=== PATIENT | female | born 1975 | race Caucasian/White ===

== ENCOUNTER → 2016-05-27 | Outpatient (CLI) | payer BC ==
[~2016-05-27] MED LIST: MULT-506 PO
[2016-05-27 14:24] LABS: BASO % 0.2 %; BASO ABS # 0.02 K/uL (0-0.2); COMPLETE YES; EOS % 2.1 %; HEMATOCRIT 41.9 % (37-47); IG% 0.1 %; LYMPH % 27.1 %; LYMPH ABS # 2.46 K/uL (1.2-3.4); MEAN CELL VOLUME 96.5 fL (80-100); MEAN CORPUSCULAR HEMOGLOBIN 33.4 pg (25-34); MEAN CORPUSCULAR HGB CONC 34.6 g/dl (32-36); MEAN PLATELET VOLUME 10.9 fL (7.4-10.4); MONO % 7.7 %; NEUT % 62.8 %; PLATELET COUNT 169 K/uL (130-400); RED BLOOD COUNT 4.34 M/uL (4.2-5.4); WHITE BLOOD COUNT 9.09 K/uL (4.8-10.8)
== END | disposition home or self-care (01) ==
LOC: C.LAB1850 13:20
PROVIDERS: ATTEND Obstetrics & Gynecology
DX: R10.2 Pelvic and perineal pain (principal)

== ENCOUNTER → 2016-06-03 | Outpatient (CLI) | payer BC ==
[2016-06-03 10:02] LABS: ALT/SGPT 28 U/L (12-78); AST/SGOT 11 U/L (15-37); BLOOD UREA NITROGEN 10 mg/dl (7-18); BUN/CREATININE RATIO 10.4 (10-20); CALCIUM 8.5 mg/dl (8.5-10.1); CARBON DIOXIDE 25 mmol/L (21-32); CHLORIDE 107 mmol/L (98-107); CREATININE 0.99 mg/dl (0.60-1.20); GLUCOSE 84 mg/dl (70-99); POTASSIUM 3.9 mmol/L (3.5-5.1); SODIUM 140 mmol/L (136-145)
[2016-06-03 10:15] LABS: ALB/GLOB RATIO 1.2 (0.9-2); ALKALINE PHOSPHATASE 56 U/L (45-117); CHOLESTEROL 147 mg/dl (0-200); CHOLESTEROL/HDL RATIO 3.8; HDL CHOLESTEROL 39 mg/dl; TRIGLYCERIDES 117 mg/dl (0-150); VERY LOW DENSITY LIPOPROT CALC 23 mg/dl
== END ==
LOC: C.LAB1850 07:12
PROVIDERS: ATTEND Internal Medicine
DX: R53.83 Other fatigue (principal); E78.5 Hyperlipidemia, unspecified; E66.09 Other obesity due to excess calories

== ENCOUNTER → 2016-09-20 | Outpatient (CLI) | payer BC ==
[~2016-09-20] MED LIST changes: +FRRG PO; +PRT40 PO
--- NOTE | 2016-09-21 14:52 | MAMMOGRAPHY REPORT ---
BILATERAL FIRST EVER DIGITAL SCREENING MAMMOGRAM TOMOSYNTHESIS WITH CAD: 09/20/2016 CLINICAL HISTORY: Baseline examination. Patient has no complaints. TECHNIQUE: Breast tomosynthesis in addition to standard 2D mammography was performed. Current study was also evaluated with a Computer Aided Detection (CAD) system. COMPARISON: No prior exams were available for comparison. BREAST COMPOSITION: The tissue of both breasts is heterogeneously dense, which may obscure small ma sses. FINDINGS: No suspicious mass, architectural distortion or cluster of microcalcifications is seen. IMPRESSION: ACR BI-RADS CATEGORY 1: NEGATIVE There is no mammographic evidence of malignancy. A 1 year screening mammogram is recommended. The p atient will receive written notification of the results. Approximately 10% of breast cancers are not detected with mammography. A negative mammographic repor t should not delay biopsy if a clinically suggestive mass is present. Charmaine Morris M.D. ay/:09/20/2016 18:01:59 [employer] Drawing Operator: Christin Goss, [facility] letter sent: Normal 1/2 BI-RADS Code: ACR BI-RADS Category 1: Negative
== END | disposition home or self-care (01) ==
LOC: C.MAMM 14:32
PROVIDERS: ATTEND Internal Medicine
DX: Z12.31 Encounter for screening mammogram for malignant neoplasm of breast (principal)

== ENCOUNTER 2017-03-08 12:25 | Inpatient (IN) | payer BC ==
[~2017-03-08] VITALS: Ht 152.4 cm; Wt 71.7 kg
[~2017-03-08 12:25] MED LIST changes: -FRRG PO; -PRT40 PO
[2017-03-08] MEDS ORDERED: SODIUM CHLORIDE 0.9% 1000ML 1,000 ML IV SCH (13:00)
[2017-03-08] MEDS ORDERED: PANTOprazole INJ 80 MG in DEXTROSE 5% 100ML IV SCH (13:00)
[2017-03-08 13:13] VITALS: BP 152/90; PULSE 126; TEMP 36.7; O2SAT 100; Ht 152.4 cm; Wt 71.7 kg
[2017-03-08 13:45] LABS: BASO % 0.2 %; BASO ABS # 0.02 K/uL (0-0.2); EOS % 1.7 %; HEMATOCRIT 29.7 % (37-47); IG% 0.2 %; LYMPH ABS # 3.27 K/uL (1.2-3.4); MEAN CELL VOLUME 96.4 fL (80-100); MEAN CORPUSCULAR HEMOGLOBIN 33.4 pg (25-34); MEAN PLATELET VOLUME 10.3 fL (7.4-10.4); MONO % 5.7 %; NEUT % 65.2 %; PLATELET COUNT 154 K/uL (130-400); RED BLOOD COUNT 3.08 M/uL (4.2-5.4)
--- NOTE | 2017-03-08 13:49 | GASTROINTESTINAL CONSULTATION ---
DATE OF CONSULTATION: 03/08/2017 REASON FOR CONSULTATION: Melena. HISTORY OF PRESENT ILLNESS: The patient is a 41-year-old person, previously in excellent health, who developed some epigastric discomfort intermittently last week and then 2 days ago, had melenic stool. She had another one yesterday and then today, her third one, at which point she presented to the office of Dr. Burrell. She was found to have blood in her stool and was tachycardic and was referred for direct admission. The patient reports never having had symptoms similar to this. She does take Excedrin Migraine 2 pills about every 2 weeks for occasional headaches, but otherwise takes no aspirin or other nonsteroidals. She is on no other medications and there is no family history of ulcer disease. PAST MEDICAL HISTORY: Remarkable for uterine ablation and 2 D&Cs. MEDICATIONS: Excedrin Migraine p.r.n. ALLERGIES: SULFA CAUSES HER LIPS AND TONGUE TO SWELL. 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 She does not smoke. Drinks alcohol about twice a week, usually about 2 drinks. FAMILY HISTORY: Unknown as the patient is adopted. REVIEW OF SYSTEMS: The patient noted that she was a little bit short of breath when going up the stairs, which is unusual for her. The remainder is negative. PHYSICAL EXAMINATION: GENERAL: The patient appears awake, alert, in no acute distress. VITAL SIGNS: Blood pressure is 152/90, pulse 126, and temperature is 36.7. Room air oxygen saturation is 100%. HEENT: Pupils react to light. Conjunctivae are slightly pale. Pharynx clear. NECK: Showed no thyromegaly. ABDOMEN: Shows a naval piercing scar. There are no masses, tenderness, or hepatosplenomegaly. EXTREMITIES: Showed her palms of her hands are slightly pale as well. NEUROLOGIC: Nonfocal. IMPRESSION: The patient has melena, probably from an ulcer. Her only identifiable risk factor so far, which is a low risk factor, is that she takes Excedrin Migraine 2 pills about every 2 weeks. I plan on checking a stool for H. pylori. She has been ordered Protonix drip. She did have something to eat a couple of hours ago and we were not going to be able to sedate her today, but we will schedule her for an EGD tomorrow. In the meantime, she can be on liquids. We will continue to follow her during her hospital stay.
[2017-03-08] MEDS: PANTOprazole INJ 40 MG in DEXTROSE 5% 100ML IV SCH ×2 (13:53→19:00)
[2017-03-08 13:55] LABS: COMPLETE YES; MEAN CORPUSCULAR HGB CONC 34.7 g/dl (32-36)
[2017-03-08 14:07] LABS: ALB/GLOB RATIO 1.2 (0.9-2); BUN/CREATININE RATIO 15.1 (10-20); CALCIUM 8.6 mg/dl (8.5-10.1); CREATININE 0.76 mg/dl (0.60-1.20)
[2017-03-08] MEDS: POTASSIUM CHLORIDE INJ 40 MEQ in SODIUM CHLORIDE 0.9% 1000ML 1,000 ML IV SCH (14:45)
[2017-03-08 15:18] VITALS: BP 129/82; PULSE 87; TEMP 36.9; O2SAT 100
[2017-03-08 16:00] VITALS: O2SAT 100
--- NOTE | 2017-03-08 18:04 | History and Physical ---
History & Physical Date of Service Mar 08, 2017. History & Physical ADMISSION DATE : 03/08/2017 CHIEF COMPLAINT : 41-year-old female admitted directly from the office with epigastric pain and evidence of gastrointestinal bleed. PRESENT ILLNESS : Patient without any significant past medical history. She has no history of any peptic ulcer disease. She does not take any gastrotoxic medications. She called earlier this morning complaining of having epigastric pain and also black stool. Her symptoms started last week. She was feeling bloated. Some review nonspecific abdominal discomfort. She was constipated. She thought that that was the problem. The episodes came in waves as she described them. Subsequently the pain centralized in the epigastric area. Since Monday she was having severe pain. Last night she could not sleep because of the severity of the pain. She denied any associated fever or chills. No nausea no vomiting. She has had multiple bowel movements and ordered were black stools since Monday morning. She had a total of what 4-5 bowel movements. She denied any associated dizziness or lightheadedness. She was complaining of feeling very tired. She last had chicken soup but on 11:00 in the morning. On examination in the office she had epigastric tenderness without any guarding or rebound. Rectal examination showed dark black stool. Tested very positive for blood. Arrangements were made for admission for further evaluation and treatment. PAST MEDICAL HISTORY : * 2 D&Cs in the past * Uterine ablation done in April 2016 * Lucien teeth extraction in the remote past * Occasional headache for which she takes Excedrin Migraine. SOCIAL HISTORY : She is . Has 2 children. Denied any smoking. Very occasional alcohol. No excessive coffee Q soft drinks. Just one cup of coffee per day. She is a teacher. FAMILY HISTORY : She is adopted. Not aware of any family history ALLERGIES : Sulfa which caused swelling of her throat CURRENT MEDICATIONS : Excedrin Migraine on a when necessary basis REVIEW OF SYSTEMS : She denied any headache. No dizziness no lightheadedness. No problem with her vision. No earaches or throat or neck pain. No chest pain pressure or tightness. No shortness of breath. Complaining of epigastric pain. No nausea no vomiting. Black stool as noted. No urinary problem. No pain in her back or extremities. PHYSICAL EXAMINATION : General she is well-developed. No distress. Her recorded weight is 71.7 kg height 152.4 cm. BMI 30.9 Vital signs: When she was seen in the office her blood pressure was 126/74 pulse 72 and regular temperature 98.7 Skin is warm and dry. No rash HEENT: No mucosal abnormalities Neck is supple without lymph node or thyroid enlargement. No JVD. Normal carotid pulses. No bruit Heart regular heart sounds without any murmur rub or gallop Lungs are clear. Abdomen is soft. Definite epigastric tenderness. No guarding or rebound. No organomegaly or masses. Good bowel sounds. Back no spinal or CVA tenderness Extremities no edema clubbing or cyanosis. No joint or muscle tenderness. Good pulses Neurological examination was completely unremarkable Rectal examination showed no anorectal abnormality. She has very dark black stool which tested very positive for occult blood. LABORATORY TESTS : WBC count 12,100, hemoglobin 10.3, hematocrit 29.7, platelet count 154,000. Sodium 140, potassium 3.0, chloride 107, CO2 24, BUNs 12, creatinine 0.76, glucose 143, calcium 8.6, total bilirubin 0.2, AST 12, AST 21, alkaline phosphatase 56, total protein 6.7, albumin 3.7, amylase 63, lipase 193. ASSESSMENT : * Acute GI bleed. I'm suspecting that she most likely has peptic ulcer disease given the fact that she is having epigastric pain and she has had melena for the last 3 days. * History of headaches. * Hypokalemia PLAN : Patient was admitted to a medical bed. Resuscitation level I. All other laboratory tests were ordered. She was started on IV fluid. Potassium chloride was added to her IV fluid. She was also started on IV Protonix with a bolus and continuous infusion. I spoke with Dr. Chopra and requested a GI consultation. We'll recheck her CBC at 8:00 tonight. Also will check a PT and a PTT. Dr. Chopra ordered H pylori. The plan at this time is to proceed with an EGD tomorrow. Further treatment will depend on findings. Overall at this point her condition is quite stable. She is not manifesting any orthostatic symptomatology.
[2017-03-08 20:27] LABS: MEAN CELL VOLUME 96.7 fL (80-100); MEAN CORPUSCULAR HEMOGLOBIN 32.3 pg (25-34); MEAN CORPUSCULAR HGB CONC 33.4 g/dl (32-36); PLATELET COUNT 143 K/uL (130-400); WHITE BLOOD COUNT 11.71 K/uL (4.8-10.8)
[2017-03-08 20:38] LABS: PARTIAL THROMBOPLASTIN RATIO 0.9; PROTHROMBIN TIME (PATIENT) 10.2 SECONDS (9.0-12.0)
[2017-03-08] MEDS: ACETAMINOPHEN 325 MG TAB PO PRN (21:12)
[2017-03-08 23:39] VITALS: BP 103/67; PULSE 84; TEMP 36.8; O2SAT 99
[2017-03-09] VITALS (7 sets, daily range): BP systolic 107–131; BP diastolic 69–85; PULSE 66–94; TEMP 36.8–37; O2SAT 97–100
[2017-03-09] MEDS: PANTOprazole INJ 40 MG in DEXTROSE 5% 100ML IV SCH ×6 (00:11→23:37)
[2017-03-09] MEDS: POTASSIUM CHLORIDE INJ 40 MEQ in SODIUM CHLORIDE 0.9% 1000ML 1,000 ML IV SCH ×3 (01:00→19:52)
[2017-03-09 06:13] LABS: BASO % 0.1 %; BASO ABS # 0.01 K/uL (0-0.2); COMPLETE YES; EOS % 4.1 %; HEMATOCRIT 27.1 % (37-47); IG% 0.3 %; LYMPH % 36.4 %; LYMPH ABS # 2.76 K/uL (1.2-3.4); MEAN CELL VOLUME 97.8 fL (80-100); MEAN CORPUSCULAR HEMOGLOBIN 33.9 pg (25-34); MEAN CORPUSCULAR HGB CONC 34.7 g/dl (32-36); MEAN PLATELET VOLUME 9.8 fL (7.4-10.4); MONO % 5.7 %; NEUT % 53.4 %; PLATELET COUNT 132 K/uL (130-400); RED BLOOD COUNT 2.77 M/uL (4.2-5.4); WHITE BLOOD COUNT 7.59 K/uL (4.8-10.8)
[2017-03-09 06:58] LABS: BUN/CREATININE RATIO 7.9 (10-20); CALCIUM 7.6 mg/dl (8.5-10.1); CREATININE 0.78 mg/dl (0.60-1.20); POTASSIUM 3.8 mmol/L (3.5-5.1)
[2017-03-09] MEDS: ACETAMINOPHEN 325 MG TAB PO PRN ×3 (09:29→20:00)
[2017-03-09] MEDS ORDERED: FENTANYL CITRATE INJ 50 MCG/1 ML 2 ML VIAL ONE (12:14)
[2017-03-09] MEDS ORDERED: PROPOFOL IV EMULSION 10 MG/ML 20 ML VIAL IV ONE (12:14)
[2017-03-09] MEDS ORDERED: METOPROLOL TARTRATE 1 MG/ML VIAL ONE (12:14)
--- NOTE | 2017-03-09 12:27 | Endo History and Physical ---
History & Physical Date of Service: Mar 09, 2017. Chief Complaint: Melena Referring Physician: [facility] History of Present Illness For EGD Past Surgical History Hx Cardiac Surgery: No Hx Abdominal Surgery: No Hx Post-Op Nausea and Vomiting: No Hx Cancer Surgery: No Hx Thoracic Surgery: No Hx Orthopedic: No Hx Urinary Tract Surgery: No Social History Smoking Status: Never Smoker Hx Substance Use: No Hx Alcohol Use: Yes (Captain once a week) Allergies Coded Allergies: Sulfa Antibiotics (Verified Allergy, Unknown, HIVES, THROAT SWELLING, ) Current Medications Reported Home Medications Medications Dose Route/Sig Max Daily Dose Days Date Category Multivitamin (Multivitamins) Tab 1 Tab PO QAM 04/19/16 Reported Vital Signs Weight (Kilograms): 71.700 Height (Feet): 5 Height (Inches): 0.00 Date Time Temp Pulse Resp B/P (MAP) Pulse Ox O2 Delivery O2 Flow Rate FiO2 03/09/17 12:10 37.2 93 16 135/72 (93) 100 Room Air 03/09/17 12:09 36.8 66 22 118/77 (91) 100 Room Air 03/09/17 08:30 Room Air 03/09/17 07:29 36.9 81 20 124/85 (98) 99 Room Air 03/09/17 04:25 Room Air 03/09/17 00:00 Room Air 03/08/17 23:39 36.8 84 20 103/67 (79) 99 Room Air 03/08/17 20:00 Room Air 03/08/17 16:00 100 Room Air 03/08/17 15:18 36.9 87 20 129/82 (98) 100 Room Air 03/08/17 13:13 36.7 126 18 152/90 100 Room Air Physical Exam General Appearance: WD/WN Respiratory/Chest: Respiratory effort: no dyspnea Cardiovascular: Heart Auscultation: RRR Abdomen: Inspection & Palpation: soft Assessment and Plan Melena for EGD
[2017-03-09] MEDS ORDERED: LIDOCAINE HCL 2% 2 ML VIAL (20MG/ML) ONE (12:50)
--- NOTE | 2017-03-09 12:50 | GI REPORT ---
Procedure Date: 03/09/2017 12:33 PM Procedure: Upper GI endoscopy Indications: Melena Medicines: Fentanyl 100 micrograms IV, Propofol total dose 150 mg IV, Lidocaine 60 mg IV Complications: No immediate complications. Estimated Blood Loss: Estimated blood loss: none. Procedure: Pre-Anesthesia Assessment: - Prior to the procedure, a History and Physical was performed, and patient medications, allergies and sensitivities were reviewed. The patient's tolerance of previous anesthesia was reviewed. - The risks and benefits of the procedure and the sedation options and risks were discussed with the patient. All questions were answered and informed consent was obtained. After obtaining informed consent, the endoscope was passed under direct vision. Throughout the procedure, the patient's blood pressure, pulse, and oxygen saturations were monitored continuously. The scope was introduced through the mouth, and advanced to the second part of duodenum. The upper GI endoscopy was accomplished without difficulty. The patient tolerated the procedure well. Findings: The examined esophagus was normal. The Z-line was regular and was found 39 cm from the incisors. The entire examined stomach was normal. Three non-bleeding cratered duodenal ulcers with no stigmata of bleeding were found in the first part of the duodenum. The largest lesion was 10 mm in largest dimension. Impression: - Normal esophagus. - Z-line regular, 39 cm from the incisors. - Normal stomach. - Multiple non-bleeding duodenal ulcers with no stigmata of bleeding. - No specimens collected. Recommendation: - Return patient to hospital [facility] for ongoing care. Abdiel Chopra M.D. Abdiel Chopra MD 03/09/2017 12:50:21 PM This report has been signed electronically. Note Initiated On: 03/09/2017 12:33 PM I attest to the content of the Intraoperative Record and orders documented therein, exceptions below
--- NOTE | 2017-03-09 13:07 | Anesthesiology Progress Note ---
Anesthesia Post Op Note Date & Time Mar 09, 2017 at 13:07 Vital Signs Pain Intensity: 0.0 Vital Signs Past 12 Hours Date Time Temp Pulse Resp B/P (MAP) Pulse Ox O2 Delivery O2 Flow Rate FiO2 03/09/17 12:50 87 18 107/56 (73) 100 Room Air 03/09/17 12:10 37.2 93 16 135/72 (93) 100 Room Air 03/09/17 12:09 36.8 66 22 118/77 (91) 100 Room Air 03/09/17 08:30 Room Air 03/09/17 07:29 36.9 81 20 124/85 (98) 99 Room Air 03/09/17 04:25 Room Air Notes Mental Status: alert / awake / arousable, participated in evaluation Pt Amnestic to Procedure: Yes Nausea / Vomiting: adequately controlled Pain: adequately controlled Airway Patency, RR, SpO2: stable & adequate BP & HR: stable & adequate Hydration State: stable & adequate Anesthetic Complications: no major complications apparent
--- NOTE | 2017-03-09 15:49 | PROGRESS NOTE ---
DATE: 03/09/2017 DATE: 03/09/2017 SUBJECTIVE: The patient underwent EGD today which showed a 10 mm ulcer in the duodenal bulb with 2 smaller surrounding ulcers. There was a clean base with no visible vessel or stigmata of bleeding, no clot or blood was seen. The patient tolerated the procedure well. IMPRESSION: The patient has duodenal ulcers, probably related to the headache medication she has been taking intermittently. I did order a stool for H. pylori which is pending. Stool has not been produced since admission. At this point, she can have her Protonix changed to p.o. She is on a full liquid bland diet now and if she tolerates that, we can advance it to a regular bland diet hopefully tomorrow.
[2017-03-09] MEDS ORDERED: TRAMADOL HCL 50 MG TAB PO STA (17:12)
[2017-03-09] MEDS ORDERED: TRAMADOL HCL 50 MG TAB PO PRN (17:15)
--- NOTE | 2017-03-09 17:25 | Progress Note ---
Progress Note Date of Service Mar 09, 2017. Progress Note 41-year-old female admitted with severe epigastric pain and evidence of GI bleed. She had melena for 3 days prior to her admission. Patient was admitted. All her laboratory tests were ordered. She was anemic. On admission her hemoglobin was 10.4. Early this year when she had a CBC done her hemoglobin was over 14. She was admitted. She was started on IV fluid. IV Protonix. She was seen in gastroenterology consultation by Dr. Abdiel Chopra. He was able to do an EGD today. She had 3 duodenal ulcers. There was no evidence of any active bleeding at the time the test was done. She is complaining of headache. She was given Tylenol. That did not relieve her. She does have history of migraines and headaches at home. She has taken Excedrin migraine. I asked her to check exactly what she was taking at home which form of Excedrin whether the one that has only acetaminophen or the one that has aspirin. Denied any dizziness or lightheadedness. No chest pain or shortness of breath. Her abdominal pain has subsided. She is tolerating her diet without any problem. She has not had a bowel movement yet. EXAMINATION : GENERAL: Well-developed. No distress. VITAL SIGNS: Blood pressure 112/77, pulse 88, respiration 18, temperature 37, oxygen saturation 100% on room air. SKIN: Warm and dry. No rash. HEENT: Completely unremarkable. NECK: No tenderness. No adenopathy. HEART: Regular heart sounds no murmur rub or gallop. LUNGS: Clear. ABDOMEN: Soft nontender. BACK: No spinal tenderness. EXTREMITIES: No edema clubbing or cyanosis. LABORATORY TESTS : WBC count 7590, hemoglobin 9.4, hematocrit 27.1, platelet count 132,000. Sodium 141, potassium 3.8, chloride 111, CO2 26, BUNs 6, creatinine 0.78, glucose 86, calcium 7.6. ASSESSMENT : * Acute GI bleed * Anemia secondary to bleeding * 3 duodenal ulcers * Recurrent headaches PLAN : * Her diet was advanced and she has been tolerating it * We'll recheck her lab tests in the morning * Continue IVs tonight * Switched to oral Protonix tomorrow morning * If her hemoglobin is stable and she is completely asymptomatic and tolerating her diet should be able to discharge her tomorrow morning.
[2017-03-10] MEDS: PANTOprazole INJ 40 MG in DEXTROSE 5% 100ML IV SCH (04:52)
[2017-03-10] MEDS: POTASSIUM CHLORIDE INJ 40 MEQ in SODIUM CHLORIDE 0.9% 1000ML 1,000 ML IV SCH (06:27)
[2017-03-10 06:29] LABS: BASO % 0.2 %; BASO ABS # 0.01 K/uL (0-0.2); COMPLETE YES; EOS % 4.9 %; HEMATOCRIT 27.9 % (37-47); IG% 0.3 %; LYMPH % 28.9 %; LYMPH ABS # 1.84 K/uL (1.2-3.4); MEAN CELL VOLUME 98.2 fL (80-100); MEAN CORPUSCULAR HEMOGLOBIN 32.4 pg (25-34); MEAN PLATELET VOLUME 9.7 fL (7.4-10.4); NEUT % 60.7 %; PLATELET COUNT 136 K/uL (130-400); RED BLOOD COUNT 2.84 M/uL (4.2-5.4); WHITE BLOOD COUNT 6.37 K/uL (4.8-10.8)
[2017-03-10 07:01] LABS: BUN/CREATININE RATIO 10.9 (10-20); CREATININE 0.76 mg/dl (0.60-1.20); MAGNESIUM 1.9 mg/dl (1.8-2.4); POTASSIUM 4.1 mmol/L (3.5-5.1)
[2017-03-10 07:24] VITALS: BP 114/75; PULSE 77; TEMP 37; O2SAT 94
[2017-03-10] MEDS ORDERED: PRT40 PO (07:56)
[2017-03-10] MEDS ORDERED: FRRG PO (07:56)
--- NOTE | 2017-03-10 07:58 | Discharge Instructions ---
Discharge Instructions Date of Service Mar 10, 2017. Admission Reason for Admission: Gi Bleed Discharge Discharge Diagnosis / Problem: acute upper GI bleed. Multiple watery ulcers. Anemia. Discharge Goals Goal(s): Decrease discomfort, Increase independence, Improve disease control Activity Recommendations Activity Limitations: resume your previous activity . Instructions / Follow-Up Instructions / Follow-Up Follow-up in 1 week. Please call the office for an appointment do not take any aspirin, Advil, ibuprofen, Aleve Current Hospital Diet Patient's current hospital diet: Regular Diet Discharge Diet Recommended Diet: Regular Diet Procedures Procedures Performed: EGD Pending Studies Studies pending at discharge: no Medical Emergencies . Who to Call and When: Medical Emergencies: If at any time you feel your situation is an emergency, please call 911 immediately. . Non-Emergent Contact Non-Emergency issues call your: Primary Care Provider . . "Provider Documentation" section prepared by Ignacio Burrell. . VTE Core Measure Inpt VTE Proph given/why not?: Treatment not indicated
[2017-03-10 08:00] VITALS: O2SAT 94
[2017-03-10 08:34] VITALS: BP 114/75; PULSE 77; TEMP 37; O2SAT 94
[2017-03-10] MEDS ORDERED: PANTOprazole SOD 40 MG TAB PO SCH (09:00)
--- NOTE | 2017-03-10 20:01 | Progress Note ---
Progress Note Date of Service Mar 10, 2017. Progress Note 41-year-old female admitted with upper abdominal pain associated with anemia and evidence of GI bleed with a 3 day history of melena prior to her admission. Patient was admitted. She was started on IV protonix. IV fluid. GI consultation was requested. She had an EGD done. She had evidence of a duodenal ulcers. There was no active bleeding at the time of her endoscopy. Her abdominal pain subsided. Her vitals remained stable. She was not orthostatic. Her diet was advanced and she was tolerating it. EXAMINATION: GENERAL : Well developed. Well nourished. No acute distress. VITAL SIGNS : Blood Pressure : 114/75, pulse 77, respiration 18, temperature 37 , oxygen saturation 94% on room air. SKIN : Warm and dry. No rash. HEENT :Completely unremarkable NECK : Supple. No adenopathy. No thyromegaly. HEART: Regular heart sounds without any murmur rub or gallop. LUNGS: Clear. Normal breath sounds. ABDOMEN: Soft nontender. No organomegaly or masses. Good bowel sounds. BACK: No spine or CVA tenderness. EXTREMITIES : No edema clubbing or cyanosis. LABORATORY TESTS: WBC count 6370, hemoglobin 9.2, hematocrit 27.9, platelet count 136,000. Sodium 139, potassium 4.1, chloride 110, CO2 23, BUN 8, creatinine 2.76, glucose 97, calcium 8.0, magnesium 1.9. ASSESSMENT: * acute upper GI bleed * Multiple duodenal ulcers * Anemia secondary to bleeding * Migraine headaches PLAN: * her condition is stable. She is now asymptomatic. Tolerating her diet. * Discharge home on oral protonix, ferrous gluconate 324 mg 3 times a day. * dietary precautions discussed * Followup in the office in one week I will repeat her CBC then
== END 2017-03-10 09:22 | disposition home or self-care (01) | DRG 379 ==
LOC: C.MED 12:45
PROVIDERS: ADMIT Internal Medicine; ATTEND Internal Medicine
PROC: 0DJ08ZZ Inspection of Upper Intestinal Tract, Via Natural or Artificial Opening Endoscopic (ICD-10-PCS; principal; 2017-03-09 11:57)
DX: K92.2 Gastrointestinal hemorrhage, unspecified (principal); K26.9 Duodenal ulcer, unspecified as acute or chronic, without hemorrhage or perforation; D64.9 Anemia, unspecified

== ENCOUNTER → 2017-03-20 | Outpatient (CLI) | payer BC ==
[~2017-03-20] MED LIST changes: +FRRG PO; +PRT40 PO
[2017-03-20 15:49] LABS: MEAN CELL VOLUME 103.9 fL (80-100); MEAN CORPUSCULAR HEMOGLOBIN 33.4 pg (25-34); MEAN CORPUSCULAR HGB CONC 32.2 g/dl (32-36); MEAN PLATELET VOLUME 10.3 fL (7.4-10.4); PLATELET COUNT 231 K/uL (130-400); RED BLOOD COUNT 3.56 M/uL (4.2-5.4); WHITE BLOOD COUNT 5.35 K/uL (4.8-10.8)
== END | disposition home or self-care (01) ==
LOC: C.LABSPEC 15:30
PROVIDERS: ATTEND Internal Medicine
DX: D64.9 Anemia, unspecified (principal); K92.2 Gastrointestinal hemorrhage, unspecified; K26.9 Duodenal ulcer, unspecified as acute or chronic, without hemorrhage or perforation

== ENCOUNTER → 2017-04-19 | Outpatient (CLI) | payer BC ==
[2017-04-19 16:08] LABS: HEMATOCRIT 41.9 % (37-47); MEAN CORPUSCULAR HEMOGLOBIN 33.7 pg (25-34); MEAN CORPUSCULAR HGB CONC 33.4 g/dl (32-36); MEAN PLATELET VOLUME 10.6 fL (7.4-10.4); PLATELET COUNT 209 K/uL (130-400); RED BLOOD COUNT 4.15 M/uL (4.2-5.4); WHITE BLOOD COUNT 8.12 K/uL (4.8-10.8)
== END | disposition home or self-care (01) ==
LOC: C.LABSPEC 15:29
PROVIDERS: ATTEND Internal Medicine
DX: D64.9 Anemia, unspecified (principal)

== ENCOUNTER → 2017-09-22 | Outpatient (CLI) | payer BC ==
--- NOTE | 2017-09-25 15:09 | MAMMOGRAPHY REPORT ---
BILATERAL DIGITAL SCREENING MAMMOGRAM TOMOSYNTHESIS WITH CAD: 09/22/2017 CLINICAL HISTORY: Routine screening. Patient has no complaints. TECHNIQUE: Breast tomosynthesis in addition to standard 2D mammography was performed. Current study was also evaluated with a Computer Aided Detection (CAD) system. COMPARISON: Comparison is made to exam dated: 09/20/2016 mammogram - [facility]. BREAST COMPOSITION: The tissue of both breasts is heterogeneously dense, which may obscure small mas ses. FINDINGS: No suspicious masses, calcifications, or areas of architectural distortion are noted in ei ther breast. There has been no significant interval change compared to prior exams. IMPRESSION: ACR BI-RADS CATEGORY 1: NEGATIVE There is no mammographic evidence of malignancy. A 1 year screening mammogram is recommended. The pa tient will receive written notification of the results. Approximately 10% of breast cancers are not detected with mammography. A negative mammographic report should not delay biopsy if a clinically suggestive mass is present. Mirtha Hawk M.D. ah/:09/22/2017 16:32:07 Swimming Coach: Rachel LE(Edi)(Angela), [facility] letter sent: Normal 1/2 BI-RADS Code: ACR BI-RADS Category 1: Negative
== END | disposition home or self-care (01) ==
LOC: C.MAMM 14:45
PROVIDERS: ATTEND Obstetrics & Gynecology
DX: Z12.31 Encounter for screening mammogram for malignant neoplasm of breast (principal)

== ENCOUNTER 2018-08-24 06:07 | Observation (INO) ==
--- NOTE | 2018-08-08 13:36 | PAT Medication Instructions ---
Medication Instructions Date of Service August 08, 2018 Home Medications multivitamin 1 tab PO QAM pantoprazole [Protonix] 40 mg PO QAM DO NOT take the morning of surgery multivitamin 1 tab PO QAM Take morning of surgery With a small sip of water, OTHERWISE NOTHING TO EAT OR DRINK AFTER MIDNIGHT: pantoprazole [Protonix] 40 mg PO QAM Other Notes If you have any questions please call us at [phone] or [phone] or [phone] or [phone]
--- NOTE | 2018-08-09 11:16 | Anesthesiology Consultation ---
Date of Service August 09, 2018 Assessment & Plan (1) Encounter for pre-operative examination: - Check test AM DOS Chart Review Chart Review: Acceptable Risk for Surgery and Patient seen in Pre Admission Traci koch Teaching & Discussion Pre-Anesthesia Teaching/Discussion Notes: Instructed NPO after midnight before surgery,except medications with 15 cc of water. Medication instructions provided according to the PAT guidelines. History Surgery Operation Date: 08/24/18 07:30 Proposed Procedures p Robotic Total Laparoscopic Hysterectomy - Kristen Altman MD, FACOG Height/Weight Height: 5 ft Weight: 74.4 kg Allergies Allergy/AdvReac Type Severity Reaction Status Date / Time Sulfa (Sulfonamide Allergy Severe HIVES, Verified 08/06/18 08:50 Antibiotics) THROAT SWELLING Medications Home Medications Medication Instructions Recorded Confirmed Last Taken multivitamin 1 tab PO QAM 08/06/18 08/06/18 Unknown pantoprazole [Protonix] 40 mg PO QAM 08/06/18 08/06/18 Unknown Past Medical History Medical History Bleeding ulcer HX (2017) GERD (gastroesophageal reflux disease) CONTROLLED History of kidney stones Migraine HX Obesity Past Family History Family History Other Adopted Past Surgical History Surgical History History of cystoscopy Cysto, stent placement, Left ureteroscopy= 12/24/17= LMA#[address] [facility] History of dilatation and curettage X2 + UTERINE ABLATION History of esophagogastroduodenoscopy (EGD) History of tooth extraction Past Anesthesia History No Hx of Anesthesia Complications and No Family Hx of Anesthesia Complications (ADOPTED) History of PONV No Motion Sickness Screening History of Motion Sickness: No Social History Smoking Status: Never smoker Do You Dip or Chew Tobacco: No Hx Alcohol Use: Yes Alcohol type: beer, wine and hard liquor alcohol intake frequency: a few times a week Hx Substance Use: No substance use type: does not use Exercise / Class Metabolic Activity II 4-5 Yardwork/Stairs/Walk up hill Review of Systems Patient denies chest pain, shortness of breath, dyspnea on exertion, cough, wheezing, palpitations. Physical Exam Vital Signs VITALS BP 134/90 P 78 TEM 98.4P SP02 100%RA RESP 16 PHYSICAL Full neck and c-spine range of motion. Full TMJ range of motion. TMD 4 finger breaths Mallampati Score 1 Dentition: intact, crown on side Lungs: clear throughout to auscultation Cardiac: regular rate and rhythm, no murmurs noted Spine: normal Extremities: no edema Testing Laboratory Results 08/09/18 11:35 Blood Type O Positive 08/09/18 11:35 Antibody Screen NEGATIVE 08/09/18 11:35
[2018-08-09 12:17] LABS: Basophils # (auto) 0.01 K/uL (0-0.2); Basophils % (auto) 0.1 %; Eosinophils # (auto) 0.11 K/uL (0-0.5); Eosinophils % (auto) 1.5 %; Hematocrit (blood only) 43.4 % (37-47); Hemoglobin 14.7 g/dL (12.0-16.0); Immature Granulocytes # (auto) 0.01 K/uL (0.00-0.02); Immature Granulocytes % (auto) 0.1 %; Lymphocytes # (auto) 1.97 K/uL (1.2-3.4); Lymphocytes % (auto) 26.4 %; Mean Corpuscular Hgb Conc 33.9 g/dL (32-36); Mean Corpuscular Volume 97.1 fL (80-100); Mean Platelet Volume 10.4 fL (7.4-10.4); Monocytes # (auto) 0.44 K/uL (0.11-0.59); Monocytes % (auto) 5.9 %; Neutrophils # (auto) 4.91 K/uL (1.4-6.5); Platelet Count 195 K/uL (130-400); RDW Coefficient of Variation 12.6 % (11.5-14.5); RDW Standard Deviation 44.4 fL (36.4-46.3); Red Blood Count 4.47 M/uL (4.2-5.4); White Blood Count 7.45 K/uL (4.8-10.8)
[~2018-08-24 06:07] MED LIST changes: +CEFAZOLIN 2000MG 2,000 MG/15 ML SYR IV SCH; -FRRG PO; +LACTATED RINGER'S 1,000 ML IV SCH; +LR 15ML/HR IV SCH; -MULT-506 PO; -PRT40 PO
[2018-08-24] MEDS ORDERED: METHYLENE BLUE 0.5% 10 ML VIAL ONE (06:53)
[2018-08-24] MEDS ORDERED: BUPIVACAINE 0.5 % 5 MG/1 ML MPF 30ML VIAL ONE ×2 (06:53→14:46)
[2018-08-24] MEDS ORDERED: LIDOCAINE HCL 2% 2 ML VIAL/AMP(20MG/ML) INFIL ONE ×2 (07:00→14:42)
[2018-08-24] MEDS ORDERED: DEXAMETHASONE SOD INJ 4 MG/ML VIAL ONE ×2 (07:00→08:14)
[2018-08-24] MEDS ORDERED: ePHEDrine sulfate 50 MG/ML AMP ONE (07:00)
[2018-08-24] MEDS ORDERED: SUCCINYLCHOLINE CHLORIDE 20 MG/ML 10 ML VIAL ONE (07:00)
[2018-08-24] MEDS ORDERED: NEOSTIGMINE METHYLSULFATE 5 MG/5 ML SYR ONE (07:01)
[2018-08-24] MEDS ORDERED: PROPOFOL IV EMULSION 10 MG/ML 20 ML VIAL IV ONE ×3 (07:01→14:42)
[2018-08-24] MEDS ORDERED: GLYCOPYRROLATE 0.2 MG/ML VIAL ONE (07:01)
[2018-08-24] MEDS ORDERED: fentaNYL citrate 100 MCG/2 ML VIAL ONE ×2 (07:01→14:42)
[2018-08-24] MEDS ORDERED: ONDANSETRON INJ 2 MG/ML 2 ML VIAL ONE ×3 (07:01→14:42)
[2018-08-24] MEDS ORDERED: MIDAZOLAM HCL 1 MG/ML 2ML VIAL ONE (07:01)
[2018-08-24] MEDS ORDERED: PHENYLEPHRINE HCL 10 MG/ML VIAL ONE (07:01)
--- NOTE | 2018-08-24 07:08 | History & Physical Bridge Note ---
Date of Service August 24, 2018 History & Physical Bridge Note I have examined the patient, reviewed the History & Physical and in the interval since the performance of the History & Physical I have noted the following changes of clinical significance: no changes noted
[2018-08-24] MEDS ORDERED: HYDROmorphone INJ 2 MG/ML SYR/VIAL ONE (07:09)
[2018-08-24] MEDS ORDERED: SODIUM CHLORIDE 0.9% INJ 10 ML VIAL ONE (07:09)
[2018-08-24] MEDS ORDERED: METOCLOPRAMIDE HCL INJ 5 MG/ML 2 ML VIAL ONE (07:58)
[2018-08-24] MEDS ORDERED: raNITIdine HCl 25 MG/ML VIAL ONE (07:59)
[2018-08-24] MEDS ORDERED: LABETALOL HCL IV 5 MG/ML 20ML IV ONE (08:14)
[2018-08-24] MEDS ORDERED: ePHEDrine sulfate 50 MG/ML AMP IV PRN ×2 (08:17→15:10)
[2018-08-24] MEDS ORDERED: ONDANSETRON INJ 2 MG/ML 2 ML VIAL IV PRN ×2 (08:17→09:33)
[2018-08-24] MEDS ORDERED: ATROPINE SULFATE 0.1 MG/ML 10ML SYR IV PRN ×2 (08:17→15:10)
[2018-08-24] MEDS ORDERED: HYDROmorphone INJ 2 MG/ML SYR/VIAL IV PRN (08:17)
[2018-08-24] MEDS ORDERED: DEXAMETHASONE SOD INJ 4 MG/ML VIAL IV PRN (08:17)
[2018-08-24] MEDS ORDERED: ROCURONIUM BROMIDE 10 MG/ML 5 ML VIAL ONE ×2 (08:45→15:17)
[2018-08-24] MEDS ORDERED: KETOROLAC 30 MG/ML VIAL ONE (08:51)
[2018-08-24] MEDS ORDERED: TISSEEL FIBRIN SEALANT 4ML TOP ONE (08:52)
--- NOTE | 2018-08-24 09:22 | Post Operative Brief Note ---
Immediate Post Op Note v1 Date of Surgery August 24, 2018 Pre & Post Diagnosis Operation Date: 08/24/18 07:30 Pre-Op Diagnosis: Pelvic Pain, Failed ablation Post-Op Diagnosis: Pelvic Pain, Failed ablation Procedure Operation Date: 08/24/18 07:30 Actual Procedures p Robotic Total Laparoscopic Hysterectomy, bilateral salpingectomy, cystoscopy - Kristen Altman MD, FACOG Surgeon Kristen Altman MD, FACOG Obstetrical Anesthesiologist nursing Estimated Blood Loss 50 Findings Consistent with Post-Op Diagnosis Drains Abad Catheter
[2018-08-24] MEDS ORDERED: ACETAMINOPHEN 325 MG TAB PO PRN (09:33)
[2018-08-24] MEDS ORDERED: OXYCODONE/ACETAMINOPHEN 5mg/325mg TAB PO PRN ×2 (09:33)
[2018-08-24] MEDS ORDERED: MEPERIDINE HCL 50 MG/ML CARP IV PRN (09:33)
[2018-08-24] MEDS ORDERED: SIMETHICONE 80 MG CHEW PO PRN (09:33)
[2018-08-24] MEDS ORDERED: MEPERIDINE HCL 25 MG/ML CARP IV PRN (09:33)
[2018-08-24] MEDS ORDERED: KETOROLAC 30 MG/ML VIAL IV PRN (09:33)
[2018-08-24] MEDS ORDERED: LACTATED RINGER'S 1,000 ML IV SCH ×2 (09:45→15:45)
[2018-08-24] MEDS: fentaNYL citrate 100 MCG/2 ML VIAL IV PRN ×2 (09:55→10:00)
--- NOTE | 2018-08-24 10:14 | Anesthesiology Progress Note ---
Date of Service August 24, 2018 Anesthesia Post Procedure Vital Signs Vital Signs: Temp Pulse Pulse Resp BP Pulse Ox 08/24/18 10:00 78 15 134/83 97 08/24/18 09:50 62 13 133/87 100 08/24/18 09:40 64 11 L 126/90 100 08/24/18 09:30 36.6 C 76 16 138/98 100 08/24/18 06:31 37 C 86 18 157/101 H 99 Notes Mental Status: alert / awake / arousable and participated in evaluation Patient Amnestic to Procedure: Yes Nausea / Vomiting: adequately controlled Pain: adequately controlled Airway Patency, RR, SpO2: stable & adequate BP & HR: stable & adequate Hydration State: stable & adequate Anesthetic Complications: no major complications apparent
[2018-08-24] MEDS: IBUPROFEN 600 MG TAB PO PRN ×2 (11:47→18:56)
[2018-08-24] MEDS ORDERED: SILVER NITR/POTASSIUM NITRATE APPLICATOR ONE (14:46)
--- NOTE | 2018-08-24 14:47 | Gynecologic Progress Note ---
Date of Service August 24, 2018 Assessment & Plan (1) Vaginal bleeding: Plan to take back to the OR for exam under anesthesia. Plan to excamine the cuff vaginally first and if see active bleeding oversew. If cannot find an active bleeder, will consider dx LPSC to evaluate pelvis. I do not suspect intraabdominal bleed given no abdominal symptoms and given the amount of blood in her belly, she would be symptomatic fi that were the case. Explained the situation to the patient and her mother, who express understanding. Consent reviewed with the patient. (2) S/P hysterectomy: Subjective Was called to see patient by nursing who noted heavy vaginal bleeding when she got up to walk. They got her cleaned up and continued. Noted there was blood on sheets. Patient notes she feels a little crampy but is otherwise ok. No significant abdominal pain. Physical Exam Constitutional: WD/WN, vitals as above Musculoskeletal: soft, nt nd, belly soft, no rebound or guarding Genitourinary: Speculum exam done and vagina full of blood and clot, about 300cc removed. Cannot see any active bleeding but not a good visualization, cuff appears intact. Results & Data Vital Signs (Past 12 Hours) Vital Signs Temp Pulse Pulse Pulse Resp BP Pulse Ox 08/24/18 12:34 98.8 F 98 H 18 127/81 97 08/24/18 11:35 98.1 F 68 15 121/80 97 08/24/18 11:05 97.7 F 87 16 118/78 96 08/24/18 10:35 98.4 F 67 18 130/81 95 08/24/18 10:19 98.6 F 62 14 136/68 94 08/24/18 10:10 98.6 F 62 14 121/79 94 08/24/18 10:00 78 15 134/83 97 08/24/18 09:50 62 13 133/87 100 08/24/18 09:40 64 11 L 126/90 100 08/24/18 09:30 97.9 F 76 16 138/98 100 08/24/18 06:31 98.6 F 86 18 157/101 H 99
[2018-08-24 15:00] LABS: Basophils # (auto) 0.01 K/uL (0-0.2); Basophils % (auto) 0.1 %; Hematocrit (blood only) 39.4 % (37-47); Hemoglobin 13.4 g/dL (12.0-16.0); Immature Granulocytes # (auto) 0.04 K/uL (0.00-0.02); Immature Granulocytes % (auto) 0.3 %; Lymphocytes # (auto) 1.08 K/uL (1.2-3.4); Lymphocytes % (auto) 7.6 %; Mean Corpuscular Volume 97.5 fL (80-100); Mean Platelet Volume 10.4 fL (7.4-10.4); Monocytes # (auto) 0.14 K/uL (0.11-0.59); Neutrophils # (auto) 12.92 K/uL (1.4-6.5); Platelet Count 183 K/uL (130-400); RDW Coefficient of Variation 12.2 % (11.5-14.5); RDW Standard Deviation 43.3 fL (36.4-46.3); Red Blood Count 4.04 M/uL (4.2-5.4); White Blood Count 14.19 K/uL (4.8-10.8)
[2018-08-24] MEDS ORDERED: fentaNYL citrate 100 MCG/2 ML VIAL IV PRN (15:10)
[2018-08-24] MEDS ORDERED: SUCCINYLCHOLINE 100MG/5ML SYR ONE (15:17)
--- NOTE | 2018-08-24 15:40 | Post Operative Brief Note ---
Immediate Post Op Note v1 Date of Surgery August 24, 2018 Pre & Post Diagnosis Operation Date: 08/24/18 13:30 Pre-Op Diagnosis: vaginal bleeding status post hysterectomy Post-Op Diagnosis: vaginal cuff bleeding Procedure Operation Date: 08/24/18 13:30 Actual Procedures p Exam Under Anesthesia of Vagina, oversewing vaginal cuff(Not Applicable) - Kristen Altman MD, FACOG Surgeon Kristen Altman MD, FACOG Regional Guide nursing Estimated Blood Loss 10 Findings Consistent with Post-Op Diagnosis Drains Abad Catheter
[2018-08-24] MEDS ORDERED: CEFAZOLIN 1000MG 1,000 MG/7.5 ML SYR IV ONE (16:15)
--- NOTE | 2018-08-24 16:17 | Anesthesiology Progress Note ---
Date of Service August 24, 2018 Anesthesia Post Procedure Vital Signs Vital Signs: Temp Pulse Pulse Pulse Resp BP BP 08/24/18 16:05 112 H 17 145/88 H 08/24/18 15:55 104 H 13 134/93 08/24/18 15:46 36.8 C 112 H 13 138/89 08/24/18 15:02 37.8 C H 115 H 18 160/102 H 08/24/18 14:20 36.8 C 115 H 18 135/84 08/24/18 12:34 37.1 C 98 H 18 127/81 08/24/18 11:35 36.7 C 68 15 121/80 08/24/18 11:05 36.5 C 87 16 118/78 08/24/18 10:35 36.9 C 67 18 130/81 08/24/18 10:19 37.0 C 62 14 136/68 08/24/18 10:10 37 C 62 14 121/79 08/24/18 10:00 78 15 134/83 08/24/18 09:50 62 13 133/87 08/24/18 09:40 64 11 L 126/90 08/24/18 09:30 36.6 C 76 16 138/98 08/24/18 06:31 37 C 86 18 157/101 H Pulse Ox 08/24/18 16:05 97 08/24/18 15:55 98 08/24/18 15:46 97 08/24/18 15:02 95 08/24/18 14:20 08/24/18 12:34 97 08/24/18 11:35 97 08/24/18 11:05 96 08/24/18 10:35 95 08/24/18 10:19 94 08/24/18 10:10 94 08/24/18 10:00 97 08/24/18 09:50 100 08/24/18 09:40 100 08/24/18 09:30 100 08/24/18 06:31 99 Pain Intensity Abdomen: Pain Intensity: 3 Notes Mental Status: alert / awake / arousable and participated in evaluation Patient Amnestic to Procedure: Yes Nausea / Vomiting: adequately controlled Pain: adequately controlled Airway Patency, RR, SpO2: stable & adequate BP & HR: stable & adequate Hydration State: stable & adequate Anesthetic Complications: no major complications apparent and Pt Satisfied with anesthetic care
--- NOTE | 2018-08-24 22:09 | Operative Report ---
DATE OF OPERATION: 08/24/2018 PREOPERATIVE DIAGNOSES: 1. Failed ablation. 2. Pelvic pain. POSTOPERATIVE DIAGNOSES: 1. Failed ablation. 2. Pelvic pain. 3. Pelvic endometriosis. PROCEDURE: 1. Total laparoscopic hysterectomy with bilateral salpingo-oophorectomy. 2. Cystoscopy. SURGEON: Kristen Altman MD. ANESTHESIA: General per endotracheal tube. ESTIMATED BLOOD LOSS: 50 mL. FLUIDS: 1800 mL. URINE OUTPUT: A 450 mL of clear yellow urine drained from the bladder prior to cystoscopy. INDICATIONS: Liliya is a 43-year-old white female with a history of menorrhagia and polyp formation who had an endometrial ablation. This worked for quite some time, but then she started to have increasing bleeding, pain, and discomfort and so decision was made for definitive therapy. FINDINGS: Normal uterus, tubes, and ovaries were noted bilaterally. There was an old burned out endometriosis in the posterior cul-de-sac along the uterosacral ligaments. The ovarian fossa were within normal limits. Ovaries were normal. Diaphragm appeared normal. Appendix was seen and appeared normal. COMPLICATIONS: None. DRAINS: Abad. DISPOSITION: To recovery room in stable condition. DESCRIPTION OF PROCEDURE: The patient was taken to the operating room where she was identified verbally and by bracelet. She was placed in dorsal supine position where general anesthesia was induced without difficulty. She was then placed in the dorsal lithotomy position in [facility] stirrups. Her arms were carefully tucked at her sides. Her chest was protected and restrained and the Beverage Host was placed and she was prepped and draped in a normal sterile fashion. Timeout was held identifying correct patient, procedure, positioning, that she had received preoperative antibiotics, we had the right equipment. There were no concerns noted in the room. Attention was turned to the vagina where a Abad catheter was placed. A weighted speculum was placed in posterior vagina. The anterior lip of the cervix was grasped with a single tooth tenaculum. Uterus sounded to about 6 cm and was dilated to #25 Hegar dilator. The VCare uterine manipulator was placed into the cervix. The green cup was sutured to the cervix using 1 suture of 0 Vicryl at the 9 o'clock position on the cervix. The speculum was removed and gloves were then changed. Attention was then turned to the abdomen where a supraumbilical incision was made with a knife 2 fingerbreadths above the umbilicus. Veress needle was placed through this, opening pressure of 3 mmHg. Abdomen was insufflated with 2.7 liters of carbon dioxide gas. A 12-mm optical trocar was placed through this and direct intra-abdominal visualization through the trocar was maintained. The patient was then placed into Trendelenburg and then two 8-mm da Brandt trocars were placed in the left and right lower quadrants and a 10-mm accessory trocar was placed in the left upper quadrant. The pelvis was surveyed with the above-noted findings. The da Brandt surgical garment fitter device was connected to the patient and the blown film extrusion operator proceeded to the console. Beginning first on the right and then on the left, the tubes were excised using hot prudence and passed up through the accessory port. Then the utero-ovarian ligaments and the round ligaments were cauterized with bipolar cautery and cut through with prudence. A bladder flap was created anteriorly sharply with scissors and the bladder was pushed down very gently with blunt dissection. The uterine arteries were skeletonized on both sides. I had identified the right ureter prior to beginning the surgery. It was low and found to be peristalsing. The left ureter was not visualized. The uterine arteries were then cauterized and cut first on the right and then on the left. A colpotomy incision was made with hot prudence in 365 degrees until the uterine specimen was removed, it was then removed through the vagina. Using 2-0 V-Loc suture, the colpotomy incision was reapproximated. The glove that had been used to maintain hemoperitoneum was removed from the vagina and no gas was noted. Cystoscopy with a 70-degree scope was then performed. Urine was seen to be effluxing from both ureters. There were no stitches in the bladder and the bladder integrity appeared normal. Cystoscopy was then discontinued. Her first catheter had been removed prior to cystoscopy and a second Abad catheter was placed sterilely. Pulmonary Physical Therapist returned to the console where Tisseel was placed on the vaginal cuff. Hemostasis was noted to be excellent upon leaving the abdomen. The gas was then released from the abdomen. The trocars were removed. A deep stitch of 0 Vicryl was placed in the fascia at the supraumbilical site. All incisions were then closed with 4-0 Vicryl in subcuticular fashion. All incisions were treated with 0.5% Marcaine without epinephrine and covered with Dermabond. All sponge, lap, and needle counts were correct x2. The patient tolerated the procedure well and was taken to the recovery room in stable condition. I attest to the content of the Intraoperative Record and any orders documented therein. Any exception s are noted below.
--- NOTE | 2018-08-24 22:51 | Operative Report ---
DATE OF OPERATION: 08/24/2018 PREOPERATIVE DIAGNOSIS: Vaginal bleeding within 4 hours after laparoscopic hysterectomy. POSTOPERATIVE DIAGNOSIS: Vaginal bleeding within 4 hours after laparoscopic hysterectomy. PROCEDURE: Exam under anesthesia with oversewing of vaginal cuff. SURGEON: Kristen Altman MD CAMPUS PRESIDENT: Nursing. ANESTHESIA: General per endotracheal tube. ESTIMATED BLOOD LOSS: Approximately 400 mL on the floor, but about 10 mL in the operating room. INDICATIONS: The patient is a little over 4 hours out from her uncomplicated total laparoscopic hysterectomy. When they went to pull the Abad catheter, they found that the sheets that she was sitting on were blood soaked and there was clot in the sheets. I came up to do an exam. The vagina was full of blood and clot. It was difficult to visualize the vaginal cuff, but there appeared to be some bleeding from that. The patient's belly was soft without signs of intraperitoneal bleeding. FINDINGS: The right side of the cuff edge had slightly opened showing the edge of the vaginal cuff. This was oversewed with 3-0 Vicryl. COMPLICATIONS: None. DRAINS: None. DISPOSITION: To recovery room in stable condition. DESCRIPTION OF PROCEDURE: The patient was taken to the operating room where she was identified verbally and by bracelet. She was placed in dorsal supine position in candy-cane stirrups and prepped and draped in normal sterile fashion. Timeout was held identifying correct patient, procedure, and positioning. There was no need for preoperative antibiotic. Bladder was drained of urine. Evaluation of the vagina showed no significant further clot. There was a little bit of blood in the vagina. There was clot adherent to the right side of the vaginal cuff. On examination of this, the cuff had slightly at this area and this was most likely the bleeding area. The cuff was oversewn x2 with 3-0 Vicryl. The rest of the vaginal cuff was thoroughly examined. There were no other areas of concern and the procedure was terminated. All sponge, lap and needle counts were correct x2. The patient tolerated the procedure well and was taken to the recovery room in stable condition. I attest to the content of the Intraoperative Record and any orders documented therein. Any exception s are noted below.
--- NOTE | 2018-08-28 11:30 | Discharge Summary ---
ADMISSION DIAGNOSES: Pelvic pain and failed ablation. DISCHARGE DIAGNOSES: 1. Pelvic pain and failed ablation. 2. Postoperative cuff bleed. PROCEDURES: 1. Total laparoscopic hysterectomy with da Brandt assist and bilateral salpingectomy. 2. Cystoscopy. 3. Exam under anesthesia with oversewing of the vaginal cuff. HISTORY OF PRESENT ILLNESS: Skylar is a 42-year-old white female 2, para 2, using vasectomy and condoms for control. She has a history of an ablation in 2016 for dysfunctional uterine bleeding and recurrent polyps. Over the last year the patient has had recurrent significant cramping that has not been responsive to oral pain medications; this is cyclic. Recent ultrasound shows no hematometra, normal size uterus, normal ovaries. Her pain has been worsening and she desires definitive surgical therapy. For the rest of the patient's detailed history and physical, please see her history and physical. ASSESSMENT: This is a 42-year-old G2, P2 with a failed ablation and pelvic pain. Plan to proceed with laparoscopic hysterectomy and bilateral salpingectomy. HOSPITAL COURSE: The patient was admitted and she underwent an uncomplicated da Brandt assisted total laparoscopic hysterectomy and bilateral salpingectomy without issue. Estimated blood loss was 50 mL. Findings at the time of surgery revealed normal uterus, tubes, and ovaries noted bilaterally. There was some burned out scarred endometriosis of the posterior cul-de-sac along the uterosacral ligaments. The ovarian fossa were normal. Ovaries were normal. Diaphragm appeared normal. Appendix was seen and appeared normal. The patient's postoperative course was initially uncomplicated. She was tolerating some clears and was taking some oral pain medication. However, when they went to take out the Abad catheter they noted her sheets were blood-soaked and she was passing clots when she got up. Speculum exam revealed her vagina to be filled with blood approximately 300 mL. Her abdomen was soft and benign. I suspected a vaginal cuff bleed so she was taken back to the operating room and exam under anesthesia was performed. This revealed the right side of the cuff edge had slightly opened. This was likely where the bleeding was coming from and the cuff was oversewed. She tolerated this procedure well and the blood loss for this procedure was essentially minimal. The patient was returned back to the floor where her postoperative course was uncomplicated. She tolerated a regular diet, ambulated without difficulty, voided after the removal of her Abad catheter, tolerated oral pain medications and had essentially no bleeding. She was discharged home later on that night. She will follow up in 2 weeks for close evaluation. DESHAWN
== END 2018-08-24 19:45 | disposition home or self-care (01) ==
LOC: 4N 06:07 → ASU 06:07

== ENCOUNTER 2021-01-18 19:48 | Inpatient (IN) ==
[2021-01-18] MEDS ORDERED: KETOROLAC TROMETHAMINE 15 MG/ML VIAL IV STA (20:08)
[2021-01-18] MEDS ORDERED: SODIUM CHLORIDE 0.9% 1000ML 2,000 ML IV ONE (20:08)
[2021-01-18 20:32] LABS: Basophils # (auto) 0.01 K/uL (0-0.2); Basophils % (auto) 0.1 %; Eosinophils # (auto) 0.01 K/uL (0-0.5); Eosinophils % (auto) 0.1 %; Hematocrit (blood only) 41.3 % (37-47); Immature Granulocytes # (auto) 0.04 K/uL (0.00-0.02); Immature Granulocytes % (auto) 0.5 %; Lymphocytes # (auto) 0.61 K/uL (1.2-3.4); Lymphocytes % (auto) 7.7 %; Mean Corpuscular Hemoglobin 33.1 pg (25-34); Mean Corpuscular Hgb Conc 33.9 g/dL (32-36); Mean Corpuscular Volume 97.6 fL (80-100); Mean Platelet Volume 9.8 fL (7.4-10.4); Monocytes # (auto) 0.46 K/uL (0.11-0.59); Monocytes % (auto) 5.8 %; Neutrophils # (auto) 6.84 K/uL (1.4-6.5); Neutrophils % (auto) 85.8 %; Platelet Count 136 K/uL (130-400); RDW Coefficient of Variation 12.8 % (11.5-14.5); RDW Standard Deviation 45.7 fL (36.4-46.3); Red Blood Count 4.23 M/uL (4.2-5.4); White Blood Count 7.97 K/uL (4.8-10.8)
[2021-01-18 20:38] LABS: Albumin Level 3.3 gm/dl (3.4-5.0); BUN Creatinine Ratio 7.5 (10-20); Bilirubin Direct 0.1 mg/dl (0-0.2); Calcium 8.3 mg/dl (8.5-10.1); Creatinine Clr Calc Pharmacy 43.2 ml/min; Est GFR (African American) 46.7 ml/min; Est GFR (Non-African American) 40.3 ml/min; Magnesium 1.8 mg/dl (1.8-2.4); Potassium 3.2 mmol/L (3.5-5.1)
[2021-01-18 20:39] LABS: Pregnancy Test, Serum Negative (Negative)
--- NOTE | 2021-01-18 21:13 | XRay Report ---
XR chest 1V portable CLINICAL HISTORY: Chest Pain COMPARISON STUDY: January 08, 2019 FINDINGS: No pneumothorax. No pleural effusion. No large infiltrates or consolidative lesions are seen. Cardiomediastinal silhouette is within normal limits in size. No significant pulmonary vascular congestion.. Osseous structures: unremarkable IMPRESSION: 1. No large infiltrates or consolidative lesions are seen. ACT 112: Negative or not required by law. The above report was generated using voice recognition software. It may contain grammatical, syntax o r spelling errors. Electronically signed by: Sherry Alexander DO 01/18/2021 9:12 PM
[2021-01-18 21:19] LABS: Appearance Urine Clear (Clear); Bacteria Urine Automated 2+ (Negative); Bilirubin Urine Negative (Negative); Blood Urine Trace (Negative); Color Urine Yellow; Epithelial Cell Urine Auto 20-30 /lpf (0-5); Glucose Urine UA Negative (Negative); Ketones Urine Negative (Negative); Leukocyte Esterase Urine 2+ (Negative); Nitrite Urine Negative (Negative); RBC Urine Automated 0-4 /hpf (0-4); Specific Gravity Urine 1.008 (1.000-1.030); Urobilinogen Urine Negative (Negative); WBC Urine Automated >30 /hpf (0-5)
[2021-01-18 21:24] LABS: Protein Urine Trace (Negative)
[2021-01-18 21:31] LABS: Lyme Ab IgG w/WB Rflx Negative (Negative); Lyme Ab IgM w/WB Rflx Negative (Negative)
[2021-01-18] MEDS ORDERED: cefTRIAXone SODIUM 2,000 MG/70 ML BAG IV STA (21:39)
[2021-01-18] MEDS ORDERED: POTASSIUM CHLORIDE CRTAB 20 MEQ TABCR PO STA (21:40)
[2021-01-18 21:43] LABS: Albumin Globulin Ratio 0.9 (0.9-2); Bilirubin,Total 0.5 mg/dl (0.2-1); Globulin 3.6 gm/dl (2.5-4.0); Phosphorus 0.9 mg/dl (2.5-4.9); Total Protein 6.9 gm/dl (6.4-8.2); Troponin I 0.087 ng/ml (0-0.045)
[2021-01-18] MEDS ORDERED: POTASSIUM PHOS 3 MMOL/1 ML INFUSION IV STA (21:44)
[2021-01-18] MEDS ORDERED: MAGNESIUM SULFATE / D5W 1 GM/100 ML BAG IV STA (21:45)
[2021-01-18] MEDS ORDERED: LACTATED RINGER'S 1,000 ML IV ONE (22:06)
[2021-01-18] MEDS ORDERED: POTASSIUM PHOSPHATE 9 MMOL in SODIUM CHLORIDE 0.9% 250 ML IV ONE ×2 (22:15→23:15)
[2021-01-18] MEDS ORDERED: OPTIRAY 320 125ml IV ONE (22:45)
--- NOTE | 2021-01-18 22:55 | Emergency Department Note ---
Impression & Plan UTI (urinary tract infection), Elevated troponin, Hypophosphatemia, Hypokalemia, Acute renal insufficiency ED Provider Note NAME: ASAD ROB AGE: 45 SEX: F ARRIVES VIA: Ambulance INFORMANT: Patient, ED PROVIDER(S): Jet Gan MD CHIEF COMPLAINT: Fever, bodyaches PLAN: Disposition: Admit MEDICAL DECISION MAKING: The patient is a pleasant 45-year-old woman with a past medical history of nephrolithiasis who presents to the emergency department for acute onset feverishness and body aches this morning which is worsened throughout the day and became more severe this evening where she reports she suddenly began to feel her heart racing and lightheaded and so EMS was called. She reports she had a COVID-19 test this morning but her results are pending. She reports she has been vaccinated with 2 dose series numerous months ago. She denies any known COVID-19 exposures. She denies any additional symptoms, including she denies cough, congestion, nausea, vomiting, diarrhea or urinary symptoms. She reports she is outside frequently but denies any known tick bites. I did receive the medical command call from EMS who reported the patient was febrile to 102 with heart rate in the 160s with narrow complex. Given the patient's fever, treatment directed to hydration and fever control which had subsequent improvement in heart rate to the 130s. On arrival the patient is uncomfortable, with temperature of 37.9, heart rate in the 130s and vital signs otherwise stable. She appears clinically dry. Abdomen is nontender. EKG demonstrates sinus tachycardia without overt acute ischemia. Chest x-ray negative for acute cardiopulmonary process. WBC, H/H is within normal limits. She does have mild lymphopenia at 0.6. Creatinine is 1.5 increased from baseline consistent with patient's appearance. Magnesium 1.8, potassium 3.2 and phosphorus 0.9 with repletion.. Patient's initial troponin was 0.087 which is most likely related to the patient's tachycardia in the setting of fever. Pericarditis/myocarditis is less likely given the patient denies any increased pain when supine. Lipase not elevated. hCG is negative. Urine is suspicious for action with 2+ leuk ok trace, WBC sees and 2+ bacteria albeit with 20-30 epithelial cells. Upon further discussion with the patient she does admit that she tends to get frequent urinary infections and it is possible that she has one now. CTX ordered. Lyme screen was negative. Anaplasma smear was negative with Anaplasma DNA test pending. COVID-19 PCR test was negative. Upon reevaluation was somewhat improved though still with general malaise and and body aches. Heart rate had improved to the 90s and blood pressure remained stable. Given the patient's elevated troponin in the setting of her febrile illness she was in agreement with plan for admission. However for further characterization of the patient's troponin elevation in setting of her tachycardia CT of the chest as well as abdomen pelvis are ordered. CTA of the chest negative for PE. CT abd/pelvis shows evidence of pyelonephritis. Case was discussed with Dr. Nair, [facility] hospitalist, who will evaluate the patient for admission. Triage Nursing notes reviewed and agree them. Prior medical records reviewed Vital Signs: reviewed and remarkable for fever, tachycardia. Differential diagnosis: Viral syndrome, otitis, pharyngitis, pneumonia, influenza, meningitis, urinary tract infection, sepsis, bacteremia, as well as other pathologies. ER treatment provided: See below. Diagnostics interpreted by me: ECG: Sinus tachycardia, 127 bpm, nonspecific ST abnormality, no overt ST elevation or depression, QTC 453, QRS 82. Cardiac Monitoring: An order for continuous cardiac monitoring was placed and demonstrated tachycardia, 127 bpm, no ectopy. Laboratory studies: See below Imaging studies: STATRAD: Preliminary Findings Only See Final Report For Complete Findings CTA CHEST: No evidence of acute pulmonary embolism. CV structures are unremarkable. Lungs are clear. No acute osseous findings. Radiologist: Areli Bustamante M.D. Study ready at 23:43 and initial results transmitted at 23:51 -- Preliminary Findings Only See Final Report For Complete Findings CT ABDOMEN & PELVIS With Contrast: Urothelial thickening in the right ureter and right renal pelvis raising concern for ascending urinary tract infection. Correlate with urinalysis. Symmetric renal enhancement. No hydronephrosis. Bilateral renal cysts. Evaluation for renal stones limited by contrast phase. Urinary bladder appears normal. Hysterectomy. Normal appendix. No bowel obstruction. Liver, gallbladder, pancreas, spleen, adrenal glands are unremarkable. No acute osseous findings. Small fat-containing umbilical hernia. Radiologist: Areli Bustamante M.D. Study ready at 23:52 and initial results transmitted at 23:59 Consultation(s): Case was discussed with Dr. Nair, [facility] hospitalist, who will evaluate the patient for admission. HPI: The patient is a pleasant 45-year-old woman with a past medical history of nephrolithiasis who presents to the emergency department for acute onset feverishness and body aches this morning which is worsened throughout the day and became more severe this evening where she reports she suddenly began to feel her heart racing and lightheaded and so EMS was called. She reports she had a COVID-19 test this morning but her results are pending. She reports she has been vaccinated with 2 dose series numerous months ago. She denies any known COVID-19 exposures. She denies any additional symptoms, including she denies cough, congestion, nausea, vomiting, diarrhea or urinary symptoms. She reports she is outside frequently but denies any known tick bites. I did receive the medical command call from EMS who reported the patient was febrile to 102 with heart rate in the 160s with narrow complex. Given the patient's fever, treatment directed to hydration and fever control which had subsequent improvement in heart rate to the 130s. ROS: See above HPI for pertinent positives & negatives. A total of 10 systems reviewed and were otherwise negative. PAST MEDICAL HISTORY:See Below PAST SURGICAL HISTORY:See Below FAMILY HISTORY:See Below SOCIAL HISTORY:See Below HOME MEDICATIONS:See Below ALLERGIES:See Below VITALS:See Below PHYSICAL EXAMINATION: GENERAL: Awake, alert, uncomfortable-appearing, in no distress HENT: Normocephalic, atraumatic. Oropharynx with dry mucous membranes and otherwise unremarkable. EYES: Normal conjunctiva. Sclera non-icteric. EOMI. No nystamgus. PEARRL. NECK: Supple. No nuchal rigidity. FROM. No JVD. RESPIRATORY: Clear to auscultation. CARDIAC: Tachycardic rate, normal rhythm. Extremities warm and well perfused. Pulses equal. ABDOMEN: Soft, non-distended. No tenderness to palpation. No rebound or guarding. No masses. RECTAL: Deferred. MUSCULOSKELETAL: Chest examination reveals no tenderness. The back is symmetrical on inspection without obvious abnormality. There is no CVA tenderness to palpation. No joint edema. LOWER EXTREMITIES: Calves are equal size bilaterally and non-tender. No edema. No discoloration. NEURO: Normal sensorium. No sensory or motor deficits noted. 5/5 strength and SILT x 4 extremities. SKIN: No rash or jaundice noted. ED COURSE: Critical Care: I have personally spent greater than 35 minutes of critical care time in the direct management of this patient. This includes bedside care, interpretation of diagnostic studies, and testing, discussion with consultants, patient, and family members, and other required patient management activities. This 35 minutes is in excess of all separately billable procedures. Jet Gan MD Past Med/Surg History Medical History Abnormal finding on mammography Atypical squamous cell changes of cervix undetermined significance favor benign ascus/hpv neg in 2006 Bleeding ulcer HX (2017) Endometrial mass Endometrial polyp GERD (gastroesophageal reflux disease) CONTROLLED H/O dysfunctional uterine bleeding Headache History of amenorrhea History of kidney stones History of varicella Migraine HX Obesity Pelvic cramping Stomach ulcer Vaginal discharge Surgical History History of cystoscopy Cysto, stent placement, Left ureteroscopy= 12/24/17= LMA#4 at [facility] History of esophagogastroduodenoscopy (EGD) History of hysteroscopy History of tooth extraction S/P dilation and curettage S/P endometrial ablation Laparoscopy S/P total hysterectomy Status post wisdom tooth extraction Family History Other Adopted Unknown family medical history Social History Smoking Status: Never smoker Second Hand Exposure: No; Hx Alcohol Use: Yes Alcohol type: beer, wine and hard liquor Hx Substance Use: No Preferred Language: Polish Communication Ability: Effective Lean Coach Required: No Beliefs That Will Affect Care: None Current Living Situation: Alone Current Living Situation Comment: LIVES WITH 2 CHILDREN (12+14) Feels Safe at Home: Yes Assistive Devices: None Allergies Allergies Allergy/AdvReac Type Severity Reaction Status Date / Time Sulfa (Sulfonamide Allergy Severe HIVES, Verified 01/18/21 20:58 Antibiotics) THROAT SWELLING Home Meds Home Medications Medication Instructions Recorded Confirmed multivitamin 1 tab PO QAM 08/06/18 01/18/21 pantoprazole 40 mg tablet,delayed 40 mg PO QAM 08/06/18 01/18/21 release (Protonix) acetaminophen 500 mg tablet 1,000 mg PO Q6H PRN 01/18/21 01/18/21 (Tylenol Extra Strength) ibuprofen 200 mg tablet 400 mg PO Q6H PRN 01/18/21 01/18/21 Results & Data (ED) Vital Signs Vital Signs - 24 hr 01/18/21 19:59 01/18/21 20:01 01/18/21 21:00 Temperature 37.9 C H Temperature Source Oral Pulse Rate 128 H 122 H 105 H Pulse Rate [Apical] Pulse Rate from SpO2 Sensor 128 H 106 H Respiratory Rate 19 24 27 H Respiratory Effort / Characteristics Non-Labored Spontaneous Blood Pressure 146/99 H 143/97 H 131/88 Blood Pressure [Left Arm] Blood Pressure Mean 114 112 102 Blood Pressure Mean [Left Arm] Blood Pressure Position Lying Pulse Oximetry 96 96 98 Oxygen Delivery Method Room Air Sepsis Recent Fever Within 48 Hours Yes Sepsis New/Unexplained Change in Mental Status No Sepsis Action Taken by Nursing Previously Notified 01/18/21 21:30 01/18/21 22:00 01/18/21 22:30 Temperature Temperature Source Pulse Rate 106 H 93 H 96 H Pulse Rate [Apical] Pulse Rate from SpO2 Sensor 106 H 93 H 95 H Respiratory Rate 26 H 24 20 Respiratory Effort / Characteristics Blood Pressure 132/85 116/76 118/85 Blood Pressure [Left Arm] Blood Pressure Mean 100 89 96 Blood Pressure Mean [Left Arm] Blood Pressure Position Pulse Oximetry 97 97 96 Oxygen Delivery Method Sepsis Recent Fever Within 48 Hours Sepsis New/Unexplained Change in Mental Status Sepsis Action Taken by Nursing 01/18/21 23:00 01/19/21 00:09 Temperature Temperature Source Pulse Rate 96 H 76 Pulse Rate [Apical] 84 Pulse Rate from SpO2 Sensor 96 H 77 Respiratory Rate 18 20 Respiratory Effort / Characteristics Blood Pressure 137/92 119/83 Blood Pressure [Left Arm] 119/83 Blood Pressure Mean 107 95 Blood Pressure Mean [Left Arm] 95 Blood Pressure Position Pulse Oximetry 98 96 Oxygen Delivery Method Room Air Sepsis Recent Fever Within 48 Hours Sepsis New/Unexplained Change in Mental Status Sepsis Action Taken by Nursing Laboratory Data Attestation: I reviewed the patient's lab results. Result diagrams: 01/18/21 20:05 01/18/21 20:05 Lab Results 01/18/21 01/18/21 01/18/21 Range/Units 20:05 20:05 20:05 WBC 7.97 (4.8-10.8) K/uL RBC 4.23 (4.2-5.4) M/uL Hgb 14.0 (12.0-16.0) g/dL Hct 41.3 (37-47) % MCV 97.6 (80-100) fL MCH 33.1 (25-34) pg MCHC 33.9 (32-36) g/dL RDW Std Deviation 45.7 (36.4-46.3) fL RDW Coeff of Duran 12.8 (11.5-14.5) % Plt Count 136 (130-400) K/uL MPV 9.8 (7.4-10.4) fL Immature Gran % (Auto) 0.5 % Neut % (Auto) 85.8 % Lymph % (Auto) 7.7 % Island % (Auto) 5.8 % Eos % (Auto) 0.1 % Baso % (Auto) 0.1 % Neut # (Auto) 6.84 H (1.4-6.5) K/uL Lymph # (Auto) 0.61 L (1.2-3.4) K/uL Island # (Auto) 0.46 (0.11-0.59) K/uL Eos # (Auto) 0.01 (0-0.5) K/uL Baso # (Auto) 0.01 (0-0.2) K/uL Immature Gran # (Auto) 0.04 H (0.00-0.02) K/uL Sodium 138 (136-145) mmol/L Potassium 3.2 L (3.5-5.1) mmol/L Chloride 109 H (98-107) mmol/L Carbon Dioxide 22 (21-32) mmol/L Anion Gap 7.0 (3-11) BUN 12 (7-18) mg/dl Creatinine 1.55 H (0.6-1.2) mg/dl Est Cr Clr Drug Dosing 43.2 ml/min Est GFR ( Amer) 46.7 ml/min Est GFR (Non-Af Amer) 40.3 ml/min BUN/Creatinine Ratio 7.5 L (10-20) Glucose 159 H (70-99) mg/dl Lactate (0.4-2.0) mmol/L Calcium 8.3 L (8.5-10.1) mg/dl Phosphorus 0.9 L* (2.5-4.9) mg/dl Magnesium 1.8 (1.8-2.4) mg/dl Total Bilirubin 0.5 (0.2-1) mg/dl Direct Bilirubin 0.1 (0-0.2) mg/dl AST 21 (15-37) U/L ALT 32 (12-78) U/L Alkaline Phosphatase 61 (45-117) U/L Troponin I 0.087 H* (0-0.045) ng/ml Total Protein 6.9 (6.4-8.2) gm/dl Albumin 3.3 L (3.4-5.0) gm/dl Globulin 3.6 (2.5-4.0) gm/dl Albumin/Globulin Ratio 0.9 (0.9-2) Lipase 121 (73-393) U/L Procalcitonin (0-0.5) ng/ml HCG, Qual Negative (Negative) Urine Color Urine Appearance (Clear) Urine pH (4.5-7.5) Ur Specific Ar[place]ard (1.000-1.030) Urine Protein (Negative) Urine Glucose (UA) (Negative) Urine Ketones (Negative) Urine Blood (Negative) Urine Nitrite (Negative) Urine Bilirubin (Negative) Urine Urobilinogen (Negative) Ur Leukocyte Esterase (Negative) Urine WBC (Auto) (0-5) /hpf Urine RBC (Auto) (0-4) /hpf U Hyaline Cast (Auto) (0-5) /lpf U Epithel Cells (Auto) (0-5) /lpf Urine Bacteria (Auto) (Negative) Anaplasma Smear See Comment Lyme Disease IgG Ab Negative (Negative) Lyme Disease IgM Ab Negative (Negative) COVID-19 Eval Order SARS-CoV-2 (PCR) (Negative) 01/18/21 01/18/21 01/18/21 Range/Units 20:08 20:13 20:13 WBC (4.8-10.8) K/uL RBC (4.2-5.4) M/uL Hgb (12.0-16.0) g/dL Hct (37-47) % MCV (80-100) fL MCH (25-34) pg MCHC (32-36) g/dL RDW Std Deviation (36.4-46.3) fL RDW Coeff of Duran (11.5-14.5) % Plt Count (130-400) K/uL MPV (7.4-10.4) fL Immature Gran % (Auto) % Neut % (Auto) % Lymph % (Auto) % Island % (Auto) % Eos % (Auto) % Baso % (Auto) % Neut # (Auto) (1.4-6.5) K/uL Lymph # (Auto) (1.2-3.4) K/uL Island # (Auto) (0.11-0.59) K/uL Eos # (Auto) (0-0.5) K/uL Baso # (Auto) (0-0.2) K/uL Immature Gran # (Auto) (0.00-0.02) K/uL Sodium (136-145) mmol/L Potassium (3.5-5.1) mmol/L Chloride (98-107) mmol/L Carbon Dioxide (21-32) mmol/L Anion Gap (3-11) BUN (7-18) mg/dl Creatinine (0.6-1.2) mg/dl Est Cr Clr Drug Dosing ml/min Est GFR ( Amer) ml/min Est GFR (Non-Af Amer) ml/min BUN/Creatinine Ratio (10-20) Glucose (70-99) mg/dl Lactate (0.4-2.0) mmol/L Calcium (8.5-10.1) mg/dl Phosphorus (2.5-4.9) mg/dl Magnesium (1.8-2.4) mg/dl Total Bilirubin (0.2-1) mg/dl Direct Bilirubin (0-0.2) mg/dl AST (15-37) U/L ALT (12-78) U/L Alkaline Phosphatase (45-117) U/L Troponin I (0-0.045) ng/ml Total Protein (6.4-8.2) gm/dl Albumin (3.4-5.0) gm/dl Globulin (2.5-4.0) gm/dl Albumin/Globulin Ratio (0.9-2) Lipase (73-393) U/L Procalcitonin 2.15 H (0-0.5) ng/ml HCG, Qual (Negative) Urine Color Urine Appearance (Clear) Urine pH (4.5-7.5) Ur Specific [place]ard (1.000-1.030) Urine Protein (Negative) Urine Glucose (UA) (Negative) Urine Ketones (Negative) Urine Blood (Negative) Urine Nitrite (Negative) Urine Bilirubin (Negative) Urine Urobilinogen (Negative) Ur Leukocyte Esterase (Negative) Urine WBC (Auto) (0-5) /hpf Urine RBC (Auto) (0-4) /hpf U Hyaline Cast (Auto) (0-5) /lpf U Epithel Cells (Auto) (0-5) /lpf Urine Bacteria (Auto) (Negative) Anaplasma Smear Lyme Disease IgG Ab (Negative) Lyme Disease IgM Ab (Negative) COVID-19 Eval Order Covid19 at [facility] SARS-CoV-2 (PCR) NEGATIVE (Negative) 01/18/21 01/18/21 Range/Units 20:20 22:27 WBC (4.8-10.8) K/uL RBC (4.2-5.4) M/uL Hgb (12.0-16.0) g/dL Hct (37-47) % MCV (80-100) fL MCH (25-34) pg MCHC (32-36) g/dL RDW Std Deviation (36.4-46.3) fL RDW Coeff of Duran (11.5-14.5) % Plt Count (130-400) K/uL MPV (7.4-10.4) fL Immature Gran % (Auto) % Neut % (Auto) % Lymph % (Auto) % Island % (Auto) % Eos % (Auto) % Baso % (Auto) % Neut # (Auto) (1.4-6.5) K/uL Lymph # (Auto) (1.2-3.4) K/uL Island # (Auto) (0.11-0.59) K/uL Eos # (Auto) (0-0.5) K/uL Baso # (Auto) (0-0.2) K/uL Immature Gran # (Auto) (0.00-0.02) K/uL Sodium (136-145) mmol/L Potassium (3.5-5.1) mmol/L Chloride (98-107) mmol/L Carbon Dioxide (21-32) mmol/L Anion Gap (3-11) BUN (7-18) mg/dl Creatinine (0.6-1.2) mg/dl Est Cr Clr Drug Dosing ml/min Est GFR ( Amer) ml/min Est GFR (Non-Af Amer) ml/min BUN/Creatinine Ratio (10-20) Glucose (70-99) mg/dl Lactate 3.0 H* (0.4-2.0) mmol/L Calcium (8.5-10.1) mg/dl Phosphorus (2.5-4.9) mg/dl Magnesium (1.8-2.4) mg/dl Total Bilirubin (0.2-1) mg/dl Direct Bilirubin (0-0.2) mg/dl AST (15-37) U/L ALT (12-78) U/L Alkaline Phosphatase (45-117) U/L Troponin I (0-0.045) ng/ml Total Protein (6.4-8.2) gm/dl Albumin (3.4-5.0) gm/dl Globulin (2.5-4.0) gm/dl Albumin/Globulin Ratio (0.9-2) Lipase (73-393) U/L Procalcitonin (0-0.5) ng/ml HCG, Qual (Negative) Urine Color Yellow Urine Appearance Clear (Clear) Urine pH 8.0 H (4.5-7.5) Ur Specific Arnegard 1.008 (1.000-1.030) Urine Protein Trace H (Negative) Urine Glucose (UA) Negative (Negative) Urine Ketones Negative (Negative) Urine Blood Trace H (Negative) Urine Nitrite Negative (Negative) Urine Bilirubin Negative (Negative) Urine Urobilinogen Negative (Negative) Ur Leukocyte Esterase 2+ H (Negative) Urine WBC (Auto) >30 H (0-5) /hpf Urine RBC (Auto) 0-4 (0-4) /hpf U Hyaline Cast (Auto) 1-5 (0-5) /lpf U Epithel Cells (Auto) 20-30 H (0-5) /lpf Urine Bacteria (Auto) 2+ H (Negative) Anaplasma Smear Lyme Disease IgG Ab (Negative) Lyme Disease IgM Ab (Negative) COVID-19 Eval Order SARS-CoV-2 (PCR) (Negative) Administered Medications Acetaminophen (Acetaminophen 325 Mg Tab) 650 mg PO Q4H PRN PRN Reason: Pain or Fever Stop: 02/18/21 02:22 Last Admin: 01/19/21 02:53 Dose: 650 mg Documented by: [id number] Sodium Chloride (Nss 1000ml) 1,000 mls @ 100 mls/hr IV .Q10H MAYRA Stop: 01/19/21 22:29 Last Admin: 01/19/21 02:54 Dose: 100 mls/hr Documented by: [id number] Discontinued Medications Sodium Chloride (Nss 1000ml) 2,000 mls @ 999 mls/hr IV .Q2H1M ONE Stop: 01/18/21 22:08 Last Infusion: 01/18/21 22:26 Dose: 0 mls/hr Documented by: [id number] Admin: 01/18/21 20:24 Dose: 999 mls/hr Documented by: [id number] Ceftriaxone Sodium (Rocephin) 2,000 mg in 70 mls @ 140 mls/hr IV NOW STA Stop: 01/18/21 22:08 Last Infusion: 01/18/21 23:00 Dose: 0 mls/hr Documented by: [id number] Admin: 01/18/21 22:32 Dose: 140 mls/hr Documented by: [id number] Magnesium Sulfate/Dextrose (Magnesium Sulfate / D5w) 1 gm in 100 mls @ 100 mls/hr IV NOW STA Stop: 01/18/21 22:44 Last Infusion: 01/19/21 00:05 Dose: 0 mls/hr Documented by: [id number] Admin: 01/18/21 23:00 Dose: 100 mls/hr Documented by: [id number] Potassium Phosphate 9 mmol/ (Sodium Chloride) 253 mls @ 88 mls/hr IV ONE ONE Stop: 01/19/21 01:07 Last Admin: 01/18/21 23:08 Dose: Not Given Documented by: [id number] Lactated Ringer's (Lr) 1,000 mls @ 999 mls/hr IV .Q1H1M ONE Stop: 01/18/21 23:06 Last Infusion: 01/19/21 00:05 Dose: 0 mls/hr Documented by: [id number] Admin: 01/18/21 22:17 Dose: 999 mls/hr Documented by: [id number] Potassium Phosphate 9 mmol/ (Sodium Chloride) 253 mls @ 88 mls/hr IV ONE ONE Stop: 01/19/21 02:07 Last Infusion: 01/19/21 03:07 Dose: 0 mls/hr Documented by: [id number] Admin: 01/19/21 00:03 Dose: 88 mls/hr Documented by: [id number] Ioversol (Optiray 320 125ml) 119 ml IV ONCE ONE Stop: 01/18/21 22:46 Last Admin: 01/18/21 22:45 Dose: 1 ml Documented by: [id number] Ketorolac Tromethamine (Ketorolac Tromethamine 15 Mg/Ml Vial) 15 mg IV NOW STA Stop: 01/18/21 20:09 Last Admin: 01/18/21 20:24 Dose: 15 mg Documented by: [id number] Potassium Chloride (Potassium Chloride Crtab 20 Meq Tabcr) 40 meq PO NOW STA Stop: 01/18/21 21:41 Last Admin: 01/18/21 22:29 Dose: 40 meq Documented by: [id number] Potassium Phosphate (Potassium Phos 3 Mmol/1 Ml Infusion) 9 mmol IV NOW STA Stop: 01/18/21 21:45 Last Admin: 01/19/21 00:03 Dose: 9 mmol Documented by: [id number] Imaging Data Radiologist's Impression: Chest X-Ray 01/18/21 20:08 XR chest 1V portable CLINICAL HISTORY: Chest Pain COMPARISON STUDY: January 08, 2019 FINDINGS: No pneumothorax. No pleural effusion. No large infiltrates or consolidative lesions are seen. Cardiomediastinal silhouette is within normal limits in size. No significant pulmonary vascular congestion.. Osseous structures: unremarkable IMPRESSION: 1. No large infiltrates or consolidative lesions are seen. ACT 112: Negative or not required by law. The above report was generated using voice recognition software. It may contain grammatical, syntax or spelling errors. Electronically signed by: Sherry Alexander DO 01/18/2021 9:12 PM Discharge Plan Visit Data Chief Complaint: Fever Stated Complaint: Illness ED Provider: Jet Gan Discharge Problem: UTI (urinary tract infection), Elevated troponin, Hypophosphatemia, Hypokalemia, Acute renal insufficiency Patient Disposition: Admitted As Inpatient Discharge Instructions Interventions: ED Discharge Assessment Last Done: 01/19/21 01:47 Discharge Problem: UTI (urinary tract infection) Qualifiers: Urinary tract infection type: acute cystitis Hematuria presence: without hematuria Qualified Code(s): N30.00 - Acute cystitis without hematuria
--- NOTE | 2021-01-18 23:21 | History & Physical Report ---
Date of Service January 18, 2021 Assessment & Plan (1) UTI (urinary tract infection): Plan: 45 yo F w/ pMHx. of stomach ulcer (2017), nephrolithiasis (2018), Hysterectomy (2019), prior UTI's and pyelonephritis presenting with fever, chills, and body aches. Sepsis likely from urinary source febrile initially, lactate 3 -> has downtrended, WBC nl. @8, UA - trace protein and blood, LCE, WBC, bacteria also had epithelial cells, symptomatic with frequency and urgency CT a/p concerning ascending urinary infection w/o hydronephrosis - renal cysts and symmetric enhancement seen [f/u final read] - Ceftriaxone empirically - IVF 1L in the ER and 100ml/hr. X 2L ordered - follow CBC - follow up urine and blood culture Elevated troponin likely type II from supply demand mismatch, asymptomatic EKG NSR and prolonged QTc @ 490 ECHO ordered - trend troponin Hypophosphatemia, unclear etiology; no identifiable medication or hx. of chronic diarrhea; potentially from urinary loses Phos - 0.9 initially - PTH and vit. D and urine microscopy ordered - given K phos 9mmole x 3 - rechecking and if >1.5 will replete orally - continue to follow and replete as needed JOHNNIE, does not appear prerenal cr. 1.55 - was given Toradol and IV contrast - IVF as above - continue to trend Reflux - continue PPI Code: full Diet: regular DVT: SCD's when in bed, ambulation (2) Elevated troponin: (3) Hypophosphatemia: (4) Hypokalemia: (5) Acute renal insufficiency: (6) S/P hysterectomy: History of Present Illness Chief Complaint: Chills Primary Care Provider: Ignacio Burrell MD Liliya Rogers is a 45-year-old female with a past medical history of stomach ulcer in 2017, nephrolithiasis with stent placement in 2018, prior UIT's and prior pyelonephritis presenting with chills and body aches. She woke up at 4AM this morning with chills, fever, and body aches. She had a COVID test ordered through her PCP and then started feeling worse with presyncope in the shower, dizziness, and felt like her heart was racing. he body aches and generalized pain was initially 9-10/10 at home, 6-7/10 initially in the ER and 4/10 after Toradol. She does not have any back or flank pain. She has never felt like this prior and explained that when she had a kidney infection in the past it felt different in that she had flank pain at that time. She is not having any blood in her urine or dysuria but is having urgency and polyuria. She was vaccinated against COVID-19 with J&J in July. Denies hematuria. ED course: IVF, Toradol, urine cultures, blood cultures, ceftriaxone Allergies Allergy/AdvReac Type Severity Reaction Status Date / Time Sulfa (Sulfonamide Allergy Severe HIVES, Verified 01/18/21 20:58 Antibiotics) THROAT SWELLING Home Medications Medication Instructions Recorded Confirmed Type multivitamin 1 tab PO QAM 08/06/18 01/18/21 History pantoprazole 40 mg tablet,delayed 40 mg PO QAM 08/06/18 01/18/21 History release (Protonix) acetaminophen 500 mg tablet 1,000 mg PO Q6H PRN 01/18/21 01/18/21 History (Tylenol Extra Strength) ibuprofen 200 mg tablet 400 mg PO Q6H PRN 01/18/21 01/18/21 History Past Med/Surg History Medical History Abnormal finding on mammography Atypical squamous cell changes of cervix undetermined significance favor benign ascus/hpv neg in 2006 Bleeding ulcer HX (2017) Endometrial mass Endometrial polyp GERD (gastroesophageal reflux disease) CONTROLLED H/O dysfunctional uterine bleeding Headache History of amenorrhea History of kidney stones History of varicella Migraine HX Obesity Pelvic cramping Stomach ulcer Vaginal discharge Surgical History History of cystoscopy Cysto, stent placement, Left ureteroscopy= 12/24/17= LMA#4 at [facility] History of esophagogastroduodenoscopy (EGD) History of hysteroscopy History of tooth extraction S/P dilation and curettage S/P endometrial ablation Laparoscopy S/P total hysterectomy Status post wisdom tooth extraction Family History Other Adopted Unknown family medical history Social History Smoking Status: Never smoker Second Hand Exposure: No; Hx Alcohol Use: Yes Alcohol type: beer, wine and hard liquor Hx Substance Use: No Preferred Language: Mohawk Communication Ability: Effective Associate Consulting Engineer Required: No Beliefs That Will Affect Care: None Current Living Situation: Alone Current Living Situation Comment: LIVES WITH 2 CHILDREN (12+14) Feels Safe at Home: Yes Assistive Devices: None Review of Systems Review of Systems: Constitutional: denies nausea, vomiting, weight loss admits fevers (102.8 F by EMS), chills, fatigue, generalized weakness, diaphoresis and intermittent night sweats Head: denies trauma, LOC, confusion, vision changes admits lightheadedness, headache Neurologic: denies syncope slurring of speech, focal weakness admits presyncope, numbness and tingling of left hand (chronic, relates to pinched nerve) Cardiac: denies chest pain, leg swelling admits palpitations Pulm.: denies cough, shortness of breath GI: denies constipation, diarrhea, blood in stool, changes in bowel habits : denies dysuria, discharge admits polyuria, urgency Physical Exam Constitutional: WD/WN, vitals as above Eyes: PERRL, conjunctivae normal, anicteric sclerae ENMT: external ear and nose normal, oropharynx normal Neck: normal visual inspection Respiratory: normal respiratory effort, lungs clear to auscultation Cardiovascular: RRR, no murmur, no edema Gastrointestinal (Abdomen): normal bowel sounds, soft, nontender, no hepatosplenomegaly Musculoskeletal: - no CVA tenderness Skin: no rashes, warm and dry Neurologic: no focal motor deficits Speech / Cognition: normal speech Psychiatric: Orientation: alert and oriented x 3 Speech: no pressured speech Affect: euthymic affect Results & Data Results & Data ([facility]) Vital Signs (Past 12 Hours) Vital Signs Temp Pulse Resp BP Pulse Ox 01/18/21 22:00 93 H 24 116/76 97 01/18/21 21:30 106 H 26 H 132/85 97 01/18/21 21:00 105 H 27 H 131/88 98 01/18/21 20:01 37.9 C H 122 H 24 143/97 H 96 01/18/21 19:59 128 H 19 146/99 H 96 CBC Results Results Complete Blood Count Results: RBC 4.13 M/uL (4.2-5.4) L 01/19/21 WBC 6.57 K/uL (4.8-10.8) 01/19/21 Hgb 13.5 g/dL (12.0-16.0) 01/19/21 Hct 41.4 % (37-47) 01/19/21 Plt Count 139 K/uL (130-400) 01/19/21 Chemistry (BMP) Results BMP Results: 2 Sodium 140 mmol/L (136-145) 01/19/21 Potassium 4.0 mmol/L (3.5-5.1) 01/19/21 Chloride 112 mmol/L (98-107) H 01/19/21 BUN 8 mg/dl (7-18) 01/19/21 Creatinine 0.92 mg/dl (0.6-1.2) 01/19/21 Glucose 109 mg/dl (70-99) H 01/19/21 Supervising Physician Co-Signing Physician Notes Attending addendum: I have physically seen this patient, have supervised the medical residents activities, and agree with the H&P unless as otherwise noted. Assessment and Plan: Elevated troponin/SVT- The patient will be admitted to telemetry for serial cardiac enzymes, serial EKG's, cardiac rhythm monitoring and a 2-D echocardiogram with Dopplers. Aspirin 81 mg daily Likely secondary to supraventricular tachycardia, as heart rate was noted up to 160 in the outpatient setting by EMS Continue rehydration with IV fluids Lopressor 5 mg IV every 4 hours as needed heart rate greater than 110 Optimize potassium, which upon entry was 3.2 and magnesium, which upon entry was 1.8 Repeat BMP and magnesium levels in a.m. Acute kidney injury- Creatinine 1.55 upon admission Repeat laboratories after IV fluids as noted above Sepsis/urinary tract infection- Ceftriaxone 1 g IV daily Follow urine culture and sensitivities IV fluids noted above Remaining orders and notations as noted Resident Activity Tracking Resident Involvement: Resident Care Provided Care Provided: Adult Hospital Medicine (1) UTI (urinary tract infection) Hematuria presence: without hematuria Urinary tract infection type: acute cystitis Qualified Code(s): N30.00 - Acute cystitis without hematuria
[2021-01-19] MEDS ORDERED: POLYETHYLENE (MIRALAX) 17 GM PACK PO PRN (02:23)
[2021-01-19] MEDS: ACETAMINOPHEN 325 MG TAB PO PRN ×4 (02:53→22:25)
[2021-01-19] MEDS: SODIUM CHLORIDE 0.9% 1000ML 1,000 ML IV SCH ×2 (02:54→13:12)
[2021-01-19 04:06] LABS: BUN Creatinine Ratio 8.4 (10-20); Calcium 7.6 mg/dl (8.5-10.1); Creatinine Clr Calc Pharmacy 74.1 ml/min; Est GFR (African American) 87.8 ml/min; Est GFR (Non-African American) 75.7 ml/min
[2021-01-19 04:21] LABS: Troponin I 0.227 ng/ml (0-0.045)
--- NOTE | 2021-01-19 06:15 | Hospitalist Progress Note ---
Date of Service January 19, 2021 Assessment & Plan (1) UTI (urinary tract infection): Plan: 45 yo F w/ pMHx. of stomach ulcer (2017), nephrolithiasis (2018), Hysterectomy (2019), prior UTI's and pyelonephritis presenting with fever, chills, and body aches. Constitutional Symptoms / Illness * Presented febrile to 37.9, alongside 1 day of constitutional symptoms -- thankfully, no evidence of SIRS or sepsis * Work-up as follows: - T 37.9 on presentation, reporting constitutional symptoms x 1 day (no respiratory) - Lactate initial at 3, normalized with IVF - No leukocytosis - UA demonstrating +LE, +bacturia, +WBCs in setting of epithelial cells - CT-A/P showing borderline urothelial thickening (RIGHT) - BCX, UCX pending - Lyme Ig's negative - Outpatient COVID-19 reportedly negative (done 01/18, on day of symptoms) - Anaplasma smear (-) -- RT-PCR pending * Based on symptoms and this endemic region, suspect tick-borne disease as culprit. No urinary symptoms to suggest UTI. No respiratory symptoms - although COVID also a possibility. Systemic viral reaction also feasible. * Recommend repeat COVID-19 test prior to departure * Begin doxycycline 100mg PO b.i.d. x 10 days * Continue CFTX for now -- can consider transitioning to Keflex Elevated Troponin * Troponin elevation noted on admission: 0.087 -> 0.227 -> 0.184 (01/19 at 0700) * No anginal symptoms. No exertional difficulties * Likely secondary to either viral or tick-borne etiology -- Low risk for early CAD: A1c (5.4%), lipids (TG 106 / TC 104 / LDL 45 / HDL 38) * Await TTE * ECG without conduction or repolarization abnormalities, other than chronic QTc 490ms Hypophosphatemia -- in setting of low vitamin D * Phos at presentation = 0.9 (Ca low, 8.3) --> corrected to 3.0 s/p KPhos * Work-up as follows: -- PTH expectedly high (90.4) in setting of hypocalcemia, +phosphatemia -- 25-OH Vit D low at 19.4 (nml 30 - 100) -- Check urinary phosphate level (check for excessive excretion) * Secondary to low vitamin D -- no GI losses, meds that would otherwise explain * Begin Vitamin D2 50,000 IU / week for at least 3 months * Begin Vitamin D3 2000 IU / day, recheck level in 3 months as outpatient Acute Kidney Injury * At presentation = BUN 12 / Cr 1.55 * Resolved s/p IVF - which could suggest prerenal etiology, however BUN/Cr was previously more suspicious for intrarenal * Can consider U(Na) and U(Cr) for FENa calculation should this recur in the future Reflux * Continue PPI Dispo: MS/T Code: full Diet: regular DVT: SCD's when in bed, ambulation (2) Elevated troponin: (3) Hypophosphatemia: (4) Hypokalemia: (5) Acute renal insufficiency: (6) S/P hysterectomy: Admission and Anticipated Discharge Date Admission Date: January 19, 2021 Supervising Physician Co-Signing Physician Notes I personally examined the patient and verified all agarwal points of history and exam, discussed case, and agree with decision making with Dr Chaney. Still feeling lousy. Achy all over, but hot and cold. Discussed diagnosis and plan. Vitals noted, in general she is awake and alert fatigued but otherwise no distress. HEENT normocephalic atraumatic mucous membranes moist. Breathing unlabored no accessory muscle use good effort. Skin without rashes, pallor, icterus. Neuro without focal deficits. Gram-negative bacteremialikely urinary source. Continue empiric ceftriaxone pending final ID and sensitivity. Elevated troponinpossible demand ischemia. This would be a little bit odd given her young age. In that respect, awaiting echo, but may need functional testing such as stress echo once she is doing better from the infection. Subjective No acute events overnight. Patient reports feeling okay this morning, still no back pain. Still feeling fatigued. Appetite is strongreports feeling hungry. No chest pain, palpitations, shortness of breath. Denies any myalgias or joint pains at present. History reviewed with her, no significant additions at this time. In the days preceding, she said she felt completely fine. She is a schoolteacher. Denies contact with anyone knowingly ill. No rash. Review of Systems Review of Systems: As per HPI Physical Exam Physical Exam: General: Alert, but overall well-appearing 45-year-old female who is lying back in her hospital bed, relaxed upon my arrival. She is in no acute distress. HEENT: NCAT. Eyes - Sclera are white, anicteric, and without injection. Cardiac: Normal rate and regular rhythm; S1 and S2 present with no murmurs, rubs, or gallops. Pulmonary: Good respiratory effort with symmetric expansion of the chest. No use of accessory muscles. Lungs were clear to auscultation bilaterally with no crackles or wheezes. Abdominal: Normoactive bowel sounds. Abdomen was soft, nondistended, and non- tender to palpation. No CVA tenderness. Extremities: Upper and lower extremities are warm and well perfused. No peripheral edema. Capillary refill approximately 2 seconds. Psych: Well-developed, well-nourished, appropriately dressed for occasion. Behavior is cooperative and appropriate. Affect is WNL. Insight is appropriate. Results & Data Results & Data ([facility]) Vital Signs (Past 12 Hours) Vital Signs Temp Pulse Pulse Resp BP BP Pulse Ox 01/19/21 02:56 71 01/19/21 02:30 36.5 C 68 18 120/89 99 01/19/21 02:29 36.5 C 68 16 120/89 99 01/19/21 01:30 72 17 110/69 96 01/19/21 01:00 78 18 128/70 96 01/19/21 00:30 81 21 117/77 95 01/19/21 00:09 76 84 20 119/83 119/83 96 01/18/21 23:00 96 H 18 137/92 98 01/18/21 22:30 96 H 20 118/85 96 01/18/21 22:00 93 H 24 116/76 97 01/18/21 21:30 106 H 26 H 132/85 97 01/18/21 21:00 105 H 27 H 131/88 98 01/18/21 20:01 37.9 C H 122 H 24 143/97 H 96 01/18/21 19:59 128 H 19 146/99 H 96 Resident Activity Tracking Resident Involvement: Resident Care Provided Care Provided: Adult Hospital Medicine (1) UTI (urinary tract infection) Hematuria presence: without hematuria Urinary tract infection type: acute cystitis Qualified Code(s): N30.00 - Acute cystitis without hematuria
[2021-01-19 07:46] LABS: Basophils # (auto) 0.02 K/uL (0-0.2); Basophils % (auto) 0.3 %; Eosinophils # (auto) 0.01 K/uL (0-0.5); Eosinophils % (auto) 0.2 %; Hematocrit (blood only) 41.4 % (37-47); Hemoglobin 13.5 g/dL (12.0-16.0); Immature Granulocytes # (auto) 0.01 K/uL (0.00-0.02); Immature Granulocytes % (auto) 0.2 %; Lymphocytes # (auto) 1.38 K/uL (1.2-3.4); Mean Corpuscular Hemoglobin 32.7 pg (25-34); Mean Corpuscular Hgb Conc 32.6 g/dL (32-36); Mean Corpuscular Volume 100.2 fL (80-100); Mean Platelet Volume 9.8 fL (7.4-10.4); Monocytes # (auto) 0.29 K/uL (0.11-0.59); Monocytes % (auto) 4.4 %; Neutrophils # (auto) 4.86 K/uL (1.4-6.5); Neutrophils % (auto) 73.9 %; Platelet Count 139 K/uL (130-400); RDW Coefficient of Variation 13.1 % (11.5-14.5); RDW Standard Deviation 48.1 fL (36.4-46.3); Red Blood Count 4.13 M/uL (4.2-5.4); White Blood Count 6.57 K/uL (4.8-10.8)
--- NOTE | 2021-01-19 07:51 | CT Scan Report ---
CT abd pelvis IV con only CLINICAL INDICATION: MN ^uti, ?sepsis. TECHNIQUE: Helical axial images of the abdomen and pelvis were obtained and displayed at 5 and 1 mm i ntervals. Automated dose lowering techniques and/or adjustment according to patient size were utilize d for this exam. This exam was performed with intravenous contrast. COMPARISON: Comparison is made to CT abdomen and pelvis 01/08/2019 FINDINGS: Lower chest: No acute abnormality Liver: Unremarkable. No focal lesions are seen. Gallbladder and biliary tree: No calcified gallstones. Normal caliber wall. No intra- or extrahepatic biliary ductal dilation. Pancreas: Unremarkable, no focal lesions. Spleen: Unremarkable. Adrenals: Unremarkable. Kidneys and ureters: Multiple cysts are again noted bilaterally. Symmetric excretion is seen without foci of decreased excretion to suggest pyelonephritis. Borderline urothelial thickening in the proxim al right ureter and right renal pelvis. Bowel: Unremarkable. The appendix is normal. Lymph nodes Retroperitoneal: Unremarkable. Mesenteric: Unremarkable. Pelvic: Unremarkable. Bladder: Unremarkable. Reproductive organs: Patient is status post hysterectomy. Peritoneum: Normal Vessels: Unremarkable. Abdominal wall: Tiny fat-containing umbilical hernia. Bones: Degenerative changes in the visualized spine. IMPRESSION: No evidence of pyelonephritis. Borderline urothelial thickening on the right may possibly represent a n ascending infection, however may also be artifactual. ACT 112: Negative or not required by law. Electronically signed by: Pavel Taylor M.D. 01/19/2021 7:50 AM
--- NOTE | 2021-01-19 07:56 | CT Scan Report ---
CT angio chest PE protocol INDICATION: MN ^B8 CTR ^uti, ?sepsis, near syncope, elevated troponin, PE. TECHNIQUE: Multidetector row helical CT of the chest was performed. Coronal and sagittal reformations were obtained. Automated dose lowering techniques and/or adjustment according to patient size were u tilized for this exam. Comparison: None available at the time of this dictation. FINDINGS: Lungs and pleura: Normal. Heart and pericardium: Heart size is normal. No pericardial effusion. Vessels: No evidence of pulmonary embolism. Mediastinum and virgilio: Unremarkable. Chest wall and lower neck: Unremarkable. Abdomen: Hepatic steatosis is noted. Bones: Unremarkable. IMPRESSION: No evidence of pulmonary embolism. ACT 112: Negative or not required by law. Electronically signed by: Pavel Taylor M.D. 01/19/2021 7:54 AM
[2021-01-19 08:07] LABS: Estimated Average Glucose 108 mg/dl; Hemoglobin A1C 5.4 % (4.5-5.6)
[2021-01-19 08:15] LABS: Troponin I 0.184 ng/ml (0-0.045)
[2021-01-19] MEDS: PANTOprazole 40 MG TAB PO SCH (09:02)
[2021-01-19] MEDS ORDERED: CHOLECALCIFEROL 1,000 UNITS 25 MCG TAB PO SCH (09:30)
[2021-01-19] MEDS ORDERED: DOXYCYCLINE HYCLATE 100 MG CAP PO SCH (10:15)
[2021-01-19] MEDS ORDERED: ERGOCALCIFEROL 50,000 UNITS 1250 MCG CAP PO ONE (10:45)
[2021-01-19] MEDS ORDERED: ACETAMINOPHEN 325 MG TAB PO ONE (12:00)
--- NOTE | 2021-01-19 16:20 | Electrocardiogram Report ---
Test Reason : Blood Pressure : / mmHG Vent. Rate : 127 BPM Atrial Rate : 127 BPM P-R Int : 130 ms QRS Dur : 082 ms QT Int : 312 ms P-R-T Axes : 036 015 033 degrees QTc Int : 453 ms Sinus tachycardia Nonspecific ST abnormality Abnormal ECG When compared with ECG of 08-JAN-2019 16:53, Nonspecific T wave abnormality has replaced inverted T waves in Inferior leads Confirmed by Bryce Person ([id number]) on 01/19/2021 4:20:41 PM Referred By: REFERRED SELF Confirmed By:Bryce Person
--- NOTE | 2021-01-19 16:23 | Electrocardiogram Report ---
Test Reason : Blood Pressure : / mmHG Vent. Rate : 088 BPM Atrial Rate : 088 BPM P-R Int : 120 ms QRS Dur : 084 ms QT Int : 406 ms P-R-T Axes : 046 014 027 degrees QTc Int : 491 ms Normal sinus rhythm Prolonged QT Abnormal ECG When compared with ECG of 18-JAN-2021 19:58, (unconfirmed) No significant change was found Confirmed by Bryce Person ([id number]) on 01/19/2021 4:22:38 PM Referred By: REFERRED SELF Confirmed By:Bryce Person
--- NOTE | 2021-01-19 19:08 | Billing Data ---
Date of Service January 19, 2021 Coding Level of Care Code 51747 Subseq Hosp Care Lvl 3
--- NOTE | 2021-01-19 19:38 | Billing Data ---
Date of Service January 19, 2021 Coding Level of Care Code 10570 Initial Inpt Care Lvl 3
[2021-01-19] MEDS: cefTRIAXone SODIUM 2,000 MG in DEXTROSE 5% 50 ML IV SCH (20:12)
[2021-01-20 06:26] LABS: Bacteria Urine Automated Negative (Negative); Cast Urine Automated 0 /lpf (0-5); RBC Urine Automated 0-4 /hpf (0-4)
[2021-01-20 06:28] LABS: Basophils # (auto) 0.01 K/uL (0-0.2); Basophils % (auto) 0.1 %; Eosinophils # (auto) 0.03 K/uL (0-0.5); Eosinophils % (auto) 0.4 %; Hematocrit (blood only) 42.4 % (37-47); Hemoglobin 14.4 g/dL (12.0-16.0); Immature Granulocytes # (auto) 0.01 K/uL (0.00-0.02); Immature Granulocytes % (auto) 0.1 %; Lymphocytes % (auto) 21.5 %; Mean Corpuscular Hemoglobin 33.1 pg (25-34); Mean Corpuscular Volume 97.5 fL (80-100); Mean Platelet Volume 9.8 fL (7.4-10.4); Monocytes # (auto) 0.44 K/uL (0.11-0.59); Monocytes % (auto) 6.3 %; Neutrophils % (auto) 71.6 %; Platelet Count 119 K/uL (130-400); RDW Coefficient of Variation 12.8 % (11.5-14.5); RDW Standard Deviation 45.6 fL (36.4-46.3); Red Blood Count 4.35 M/uL (4.2-5.4); White Blood Count 6.99 K/uL (4.8-10.8)
--- NOTE | 2021-01-20 06:48 | Hospitalist Progress Note ---
Date of Service January 20, 2021 Assessment & Plan (1) UTI (urinary tract infection): Plan: 45 yo F w/ pMHx. of stomach ulcer (2017), nephrolithiasis (2018), Hysterectomy (2019), prior UTI's and pyelonephritis presenting with fever, chills, and body aches. GNB Bacteremia * Presented febrile to 37.9, alongside 1 day of constitutional symptoms -- thankfully, no evidence of SIRS or sepsis. BCX demonstrating +GNBs. * Work-up as follows: - T 37.9 on presentation, reporting constitutional symptoms x 1 day (no respiratory) - Lactate initial at 3, normalized with IVF - No leukocytosis to date - UA demonstrating +LE, +bacturia, +WBCs - UCX demonstrating GNBs - CT-A/P showing borderline urothelial thickening (RIGHT) - Lyme Ig's negative - Outpatient COVID-19 reportedly negative (done 01/18, on day of symptoms) - Anaplasma smear (-) -- RT-PCR pending * Likely urinary source given CT findings, UCX demonstrating E. coli * Await sensitizations, characterization - E. coli on UCX sensitive to cephalosporins * Repeat BCX tomorrow AM (48 hours of ABX) * Continue CFTX -- can consider transition to cefdinir upon confirmation of BCX Cough * Intermittent cough, worse with deep breaths ongoing since arrival 01/20 * CXR, CT-PE without acute processes, consolidations * COVID-19 negative * Physical exam with RLL crackles * Suspect atelectasis. No O2 requirement. SpO2 stable on RA. Not tachycardic * Incentive spirometry 10x/hr [place]. Monitor. Elevated Troponin * Troponin elevation noted on admission: 0.087 -> 0.227 -> 0.184 (01/19 at 0700) * No anginal symptoms. No exertional difficulties * Possibly demand ischemia, slightly odd given age -- Low risk for early CAD: A1c (5.4%), lipids (TG 106 / TC 104 / LDL 45 / HDL 38) * Await TTE * ECG without conduction or repolarization abnormalities, other than chronic QTc 490ms Hypophosphatemia -- in setting of low vitamin D * Phos at presentation = 0.9 (Ca low, 8.3) --> corrected to 3.0 s/p KPhos * Work-up as follows: -- PTH expectedly high (90.4) in setting of hypocalcemia, +phosphatemia -- 25-OH Vit D low at 19.4 (nml 30 - 100) -- Check urinary phosphate level (check for excessive excretion) * Secondary to low vitamin D -- no GI losses, meds that would otherwise explain * Begin Vitamin D2 50,000 IU / week for at least 3 months * Begin Vitamin D3 2000 IU / day, recheck level in 3 months as outpatient Acute Kidney Injury -- resolved * At presentation = BUN 12 / Cr 1.55 * Resolved s/p IVF - which could suggest prerenal etiology, however BUN/Cr was previously more suspicious for intrarenal * Can consider U(Na) and U(Cr) for FENa calculation should this recur in the future Reflux * Continue PPI Dispo: MS/T Code: full Diet: regular DVT: SCD's when in bed, ambulation (2) Elevated troponin: (3) Hypophosphatemia: (4) Hypokalemia: (5) Acute renal insufficiency: (6) S/P hysterectomy: Admission and Anticipated Discharge Date Admission Date: January 19, 2021 Supervising Physician Co-Signing Physician Notes I personally examined the patient and verified all agarwal points of history and exam, discussed case, and agree with decision making with Dr Chaney. Feeling lousy but certainly no worse than yesterday. Updated, answered all questions to the best of my ability. Vitals noted, in general she is awake and alert fatigued but otherwise no distress. HEENT normocephalic atraumatic mucous membranes moist. Breathing unlabored no accessory muscle use good effort. Skin without rashes, pallor, icterus. Neuro without focal deficits. Gram-negative bacteremialikely urinary source. Urine is showing E. coli sensitive to ceftriaxone, anticipate the blood will be the same. Continue current care. Elevated troponinpossible demand ischemia, but this would be a little bit odd given her young age and overall lack of risk factors. Echo very reassuring. For completeness would strongly consider stress echo after discharge Elevated blood pressuresasymptomatic, most likely due to stress of being in the hospital, but she does note that she has had high readings at other office visits before as well. We discussed having ambulatory blood pressure monitoring so that we can determine if she truly is hypertensive, and institute treatment if so. Otherwise as above. Subjective Slept some last night. Still achy - joint pains, myalgias. Feeling diaphoretic. Appetite strong. No chest pain, palpitations, SOB. No abdominal / back pain still. Cough increasing today. No urinary symptoms. Review of Systems Review of Systems: as per HPI Physical Exam Physical Exam: General: Alert, but overall well-appearing 45-year-old female who is lying back in her hospital bed, relaxed upon my arrival. Mildly diaphoretic. She is in no acute distress. HEENT: NCAT. Eyes - Sclera are white, anicteric, and without injection. Cardiac: Mildly tachycardic w/ regular rhythm; S1 and S2 present with no murmurs, rubs, or gallops. Pulmonary: Good respiratory effort with symmetric expansion of the chest. No use of accessory muscles. +crackles in the right base, otherwise clear throughout. Abdominal: Normoactive bowel sounds. Abdomen was soft, nondistended, and non- tender to palpation. No CVA tenderness. Extremities: Upper and lower extremities are warm and well perfused. No peripheral edema. Capillary refill approximately 2 seconds. Psych: Well-developed, well-nourished, appropriately dressed for occasion. Behavior is cooperative and appropriate. Affect is WNL. Insight is appropriate. Results & Data Results & Data ([facility]) Vital Signs (Past 12 Hours) Vital Signs Temp Pulse Pulse Resp BP Pulse Ox 01/20/21 00:08 37.2 C 79 18 123/82 99 01/19/21 19:24 38.0 C H 116 H 22 171/94 H 99 Resident Activity Tracking Resident Involvement: Resident Care Provided Care Provided: Adult Hospital Medicine (1) UTI (urinary tract infection) Hematuria presence: without hematuria Urinary tract infection type: acute cystitis Qualified Code(s): N30.00 - Acute cystitis without hematuria
[2021-01-20 07:01] LABS: BUN Creatinine Ratio 8.4 (10-20); Calcium 8.3 mg/dl (8.5-10.1); Creatinine Clr Calc Pharmacy 75.7 ml/min; Est GFR (African American) 90.1 ml/min; Est GFR (Non-African American) 77.8 ml/min; Potassium 3.5 mmol/L (3.5-5.1)
[2021-01-20] MEDS ORDERED: ACETAMINOPHEN 500 MG TAB PO PRN (08:56)
[2021-01-20] MEDS ORDERED: ACETAMINOPHEN 500 MG TAB ONE (09:03)
[2021-01-20] MEDS: PANTOprazole 40 MG TAB PO SCH (09:05)
[2021-01-20] MEDS: CHOLECALCIFEROL 1,000 UNITS 25 MCG TAB PO SCH (10:39)
--- NOTE | 2021-01-20 13:31 | XCELERA ---
[id number]
--- NOTE | 2021-01-20 18:56 | Billing Data ---
Date of Service January 20, 2021 Coding Level of Care Code 08431 Subseq Hosp Care Lvl 3
[2021-01-20] MEDS: cefTRIAXone SODIUM 2,000 MG in DEXTROSE 5% 50 ML IV SCH (19:13)
--- NOTE | 2021-01-21 06:39 | Discharge Summary ---
Date of Service January 21, 2021 Admission HPI Per Admitting Provider Liliya Rogers is a 45-year-old female with a past medical history of stomach ulcer in 2017, nephrolithiasis with stent placement in 2018, prior UIT's and prior pyelonephritis presenting with chills and body aches. She woke up at 4AM this morning with chills, fever, and body aches. She had a COVID test ordered through her PCP and then started feeling worse with presyncope in the shower, dizziness, and felt like her heart was racing. he body aches and generalized pain was initially 9-10/10 at home, 6-7/10 initially in the ER and 4/10 after Toradol. She does not have any back or flank pain. She has never felt like this prior and explained that when she had a kidney infection in the past it felt different in that she had flank pain at that time. She is not having any blood in her urine or dysuria but is having urgency and polyuria. She was vaccinated against COVID-19 with [employer] in July. Denies hematuria. ED course: IVF, Toradol, urine cultures, blood cultures, ceftriaxone Admission Exam Per Admitting Provider Constitutional: WD/WN, vitals as above Eyes: PERRL, conjunctivae normal, anicteric sclerae ENMT: external ear and nose normal, oropharynx normal Neck: normal visual inspection Respiratory: normal respiratory effort, lungs clear to auscultation Cardiovascular: RRR, no murmur, no edema Gastrointestinal (Abdomen): normal bowel sounds, soft, nontender, no hepatosplenomegaly Musculoskeletal: - no CVA tenderness Skin: no rashes, warm and dry Neurologic: no focal motor deficits Speech / Cognition: normal speech Psychiatric: Orientation: alert and oriented x 3 Speech: no pressured speech Affect: euthymic affect Principal Diagnosis Bacteremia Urinary Tract Infection Discharge Exam General: Alert, but overall well-appearing 45-year-old female who is lying back in her hospital bed, relaxed upon my arrival. Mildly diaphoretic. She is in no acute distress. HEENT: NCAT. Eyes - Sclera are white, anicteric, and without injection. Cardiac: Mildly tachycardic w/ regular rhythm; S1 and S2 present with no murmurs, rubs, or gallops. Pulmonary: Good respiratory effort with symmetric expansion of the chest. No use of accessory muscles. +crackles in the right base, otherwise clear throughout. Abdominal: Normoactive bowel sounds. Abdomen was soft, nondistended, and non- tender to palpation. No CVA tenderness. Extremities: Upper and lower extremities are warm and well perfused. No peripheral edema. Capillary refill approximately 2 seconds. Psych: Well-developed, well-nourished, appropriately dressed for occasion. Behavior is cooperative and appropriate. Affect is WNL. Insight is appropriate. Discharge Data Allergies Allergy/AdvReac Type Severity Reaction Status Date / Time Sulfa (Sulfonamide Allergy Severe HIVES, Verified 01/18/21 20:58 Antibiotics) THROAT SWELLING Consultations 01/19/21 00:11 ED Decision to Admit Stat Ordered Studies CT angio chest PE protocol (01/18) INDICATION: MN ^B8 CTR ^uti, ?sepsis, near syncope, elevated troponin, PE. TECHNIQUE: Multidetector row helical CT of the chest was performed. Coronal and sagittal reformations were obtained. Automated dose lowering techniques and/or adjustment according to patient size were utilized for this exam. Comparison: None available at the time of this dictation. FINDINGS: Lungs and pleura: Normal. Heart and pericardium: Heart size is normal. No pericardial effusion. Vessels: No evidence of pulmonary embolism. Mediastinum and virgilio: Unremarkable. Chest wall and lower neck: Unremarkable. Abdomen: Hepatic steatosis is noted. Bones: Unremarkable. IMPRESSION: No evidence of pulmonary embolism. ---- CT abd pelvis IV con only (01/18) CLINICAL INDICATION: MN ^uti, ?sepsis. TECHNIQUE: Helical axial images of the abdomen and pelvis were obtained and displayed at 5 and 1 mm intervals. Automated dose lowering techniques and/or adjustment according to patient size were utilized for this exam. This exam was performed with intravenous contrast. COMPARISON: Comparison is made to CT abdomen and pelvis 01/08/2019 FINDINGS: Lower chest: No acute abnormality Liver: Unremarkable. No focal lesions are seen. Gallbladder and biliary tree: No calcified gallstones. Normal caliber wall. No intra- or extrahepatic biliary ductal dilation. Pancreas: Unremarkable, no focal lesions. Spleen: Unremarkable. Adrenals: Unremarkable. Kidneys and ureters: Multiple cysts are again noted bilaterally. Symmetric excretion is seen without foci of decreased excretion to suggest pyelonephritis. Borderline urothelial thickening in the proximal right ureter and right renal pelvis. Bowel: Unremarkable. The appendix is normal. Lymph nodes Retroperitoneal: Unremarkable. Mesenteric: Unremarkable. Pelvic: Unremarkable. Bladder: Unremarkable. Reproductive organs: Patient is status post hysterectomy. Peritoneum: Normal Vessels: Unremarkable. Abdominal wall: Tiny fat-containing umbilical hernia. Bones: Degenerative changes in the visualized spine. IMPRESSION: No evidence of pyelonephritis. Borderline urothelial thickening on the right may possibly represent an ascending infection, however may also be artifactual. Hospital Course (1) UTI (urinary tract infection): 45 yo F w/ pMHx. of stomach ulcer (2017), nephrolithiasis (2018), Hysterectomy (2019), prior UTI's and pyelonephritis presenting with fever, chills, and body aches. E. coli Bacteremia * Presented febrile to 37.9, alongside 1 day of constitutional symptoms -- thankfully, no evidence of SIRS or sepsis. BCX, UCX demonstrating E. coli growth * Work-up as follows: - T 37.9 on presentation, reporting constitutional symptoms x 1 day (no respiratory) - Lactate initial at 3, normalized with IVF - No leukocytosis throughout admission (see below) - UA demonstrating +LE, +bacturia, +WBCs - CT-A/P showing borderline urothelial thickening (RIGHT) - Lyme Ig, anaplasma smear (-) -- RT-PCR pending - Outpatient COVID-19 reportedly negative (done 01/18, on day of symptoms) * Secondary to urinary source given CT findings, UCX demonstrating E. coli too * Transition from CFTX --> Augmentin 875-125mg PO b.i.d. to complete 10-day course (end 01/28) * Interesting that patient demonstrated lack of white count throughout this process. Further, in setting of second episode of pyelo, leads to question -- ?immunodeficiency vs. autoimmune component. Recommend autoimmune, immunodeficiency w/u after resolution of acute illness * Recommend urological referral upon d/c given second episode of pyelo for evaluation of possible ureteral stricture vs. vesicoureteral reflux / other Elevated Troponin * Troponin elevation noted on admission: 0.087 -> 0.227 -> 0.184 (01/19 at 0700) * No anginal symptoms. No exertional difficulties * Possibly demand ischemia, odd given age and relative lack of RFs, except possible HTN -- Low risk for early CAD: A1c (5.4%), lipids (TG 106 / TC 104 / LDL 45 / HDL 38) -- Recommend exercise stress echo as outpatient * TTE - Normal biventricular function * ECG without conduction or repolarization abnormalities * Prolonged QTc seen on multiple ECGs in past, and while here - QTc 490ms Cough * Intermittent cough, worse with deep breaths ongoing since arrival 01/20 * CXR, CT-PE without acute processes, consolidations * COVID-19 negative * Physical exam with RLL crackles * Suspect atelectasis. No O2 requirement. SpO2 stable on RA. Not tachycardic * Improved with spirometry Hypophosphatemia -- in setting of low vitamin D * Phos at presentation = 0.9 (Ca low, 8.3) --> corrected to 3.0 s/p KPhos * Work-up as follows: -- PTH expectedly high (90.4) in setting of hypocalcemia, +phosphatemia -- 25-OH Vit D low at 19.4 (nml 30 - 100) -- Check urinary phosphate level (check for excessive excretion) * Secondary to low vitamin D -- no GI losses, meds that would otherwise explain * Begin Vitamin D2 50,000 IU / week for at least 3 months - given 1 dose here * Begin Vitamin D3 2000 IU / day, recheck level in 3 months as outpatient Acute Kidney Injury -- resolved * At presentation = BUN 12 / Cr 1.55 * Resolved s/p IVF - which could suggest prerenal etiology, however BUN/Cr was previously more suspicious for intrarenal Reflux * Continue PPI Elevated BPs * BPs have been SBPs 140-160s intermittently throughout stay here - may very well be hospital-based/illness-related stress, however, enough high readings to warrant further monitoring as outpatient Code: Identifies as FULL CODE (2) Elevated troponin: (3) Hypophosphatemia: (4) Hypokalemia: (5) Acute renal insufficiency: (6) S/P hysterectomy: Total Time Total Time Spent Total Time Spent (In Minutes): <30 Discharge Plan Discharge Items Patient Disposition: Home - Self-Care Reason For Visit: UTI Discharge Diagnosis: E. coli bacteremia -- likely from urinary source Activity: Per Instructions section Non-emergency contact: Primary Care Provider Call non-emergency contact if: you have any medication questions, your symptoms worsen and your temperature is above 101 Follow-up/Referrals: Ignacio Burrell MD [Primary Care Provider] - 01/25/21 1:30 pm Diet: Regular Addtl Attending Provider Instructions: You were seen in [facility] for evaluation of fever. Upon arrival here, you underwent several tests to determine the cause of this. A scan of your belly did demonstrate some inflammation within your urinary tubing. Further, your blood cultures did demonstrate, alongside your urine cultures, growth of a bacteria called E. coli. You were on IV antibiotics for treatment of this bloodstream infection while here, and demonstrated a good response with your symptoms. Thankfully, you are able to be transitioned to oral antibiotics on discharge. Please continue taking Augmentin twice daily (about 12 hours apart) until 02/01, to confirm clearance of this bloodstream infection. As we discussed while you are in the hospital, we do recommend talking with your primary care provider about obtaining a urology referral because you have now had multiple instances of infection stemming from the urinary tract. Further, we discussed obtaining a work-up for possible immune system dysfunction, which should also be followed-up with your PCP after discharge. Other than these, the only medication that was added during your regimen was vitamin D. You were found to have low levels of vitamin D during your admission. Please continue taking vitamin D supplement once daily, as well as a high-dose vitamin D pill (D2) once weekly. You should have your vitamin D level rechecked in approximately 3 months time. To summarize: * Take Augmentin (antibiotic), twice daily, until end of day on 02/01 * Take Vitamin D3, 2000U, daily (can be purchased OTC) * Take Vitamin D2, 50,0000 U, once weekly (prescription) Please follow-up with your primary care physician within 1 week to review this visit. Please make sure you discuss the heart function test (exercise stress test) with them at this time. In the interim, if you experience any worsening back pain, fevers, chills, body aches, joint pains, nausea, vomiting, loss of appetite, shortness of breath, or other worrisome symptoms, please seek medical attention sooner; if your symptoms are severe, please report immediately back to the ER for evaluation. Is a pleasure for caring for you while you are here, we wish you all the best in your recovery. Pending Studies at Discharge: No Stand-Alone Forms: [facility], Smoking Cessation Medications and DC Order Prescriptions: New cholecalciferol (vitamin D3) 25 mcg (1,000 unit) Capsule 2,000 unit PO QAM 30 Days Qty: 30 RF: 0 amoxicillin-pot clavulanate [Augmentin] 875-125 mg Tablet 1 tab PO BIDM 11 Days Qty: 22 RF: 0 ergocalciferol (vitamin D2) [Vitamin D2] 1,250 mcg (50,000 unit) capsule 50,000 unit PO .weekly 84 Days Qty: 12 RF: 0 Continued multivitamin Tablet 1 tab PO QAM RF: 0 pantoprazole [Protonix] 40 mg Tablet,Delayed Release (Dr/Ec) 40 mg PO QAM RF: 0 acetaminophen [Tylenol Extra Strength] 500 mg Tablet 1,000 mg PO Q6H PRN (Reason: Pain) RF: 0 ibuprofen 200 mg Tablet 400 mg PO Q6H PRN (Reason: Pain) RF: 0 Discharge Orders: Discharge Order (Routine); Ordered 01/21/21 Ordered By: Shashank Coreas/Other Patient Handouts: ED Bacteremia, Suspected (Adult) Admission Data Admit Date/Time: 01/19/21 00:27 Attending Provider: Shashank Norman Admit Provider: Lam Rivers Primary Care Provider: Ignacio Burrell Other Providers: Reggie Nair Other Interventions: Discharge Summary Assessment (RN) Last Done: 01/21/21 12:59 Supervising Physician Co-Signing Physician Notes I personally examined the patient and verified all agarwal points of history and exam, discussed case, and agree with decision making with Dr Chaney. Starting to feel better Vitals noted, in general she is awake and alert fatigued but otherwise no distress. HEENT normocephalic atraumatic mucous membranes moist. Breathing unlabored no accessory muscle use good effort. Skin without rashes, pallor, icterus. Neuro without focal deficits. Gram-negative bacteremiafrom urinary source. Fortunately stable for home on p.o. antibiotics to round out 14 days of treatment. Due to recurrent pyelonephritis is, and her overall clinical milieu, will have PCP evaluate for anything as it relates to immune deficiency or autoimmune process, and will have her see urology to ensure no structural/anatomic urinary tract issues Elevated troponinpossible demand ischemia, but this would be a little bit odd given her young age and overall lack of risk factors. Echo very reassuring. For completeness would strongly consider stress echo after discharge Elevated blood pressuresasymptomatic, most likely due to stress of being in the hospital, but she does note that she has had high readings at other office visits before as well. We discussed having ambulatory blood pressure monitoring so that we can determine if she truly is hypertensive, and institute treatment if so. Otherwise as above. Stable for home
[2021-01-21] MEDS: CHOLECALCIFEROL 1,000 UNITS 25 MCG TAB PO SCH (09:50)
[2021-01-21] MEDS: PANTOprazole 40 MG TAB PO SCH (09:50)
[2021-01-21] MEDS ORDERED: AMOXICILLIN/CLAVULANATE 875 MG TAB PO SCH (17:00)
--- NOTE | 2021-01-21 19:50 | Billing Data ---
Date of Service January 21, 2021 Coding Level of Care Code D/C DAY MANAGEMENT <30 MINS
== END 2021-01-21 13:38 | disposition home or self-care (01) | DRG 690 ==
LOC: ED 19:48 → SUATTDRO 01-19 00:27 → 2W 01-19 00:27 → 3E 01-19 19:54